=== PATIENT | male | born 1950 ===

== ENCOUNTER 2021-08-18 17:41 | Inpatient (IN) | payer MEDICARE, OTHER ==
--- NOTE | 2021-08-19 10:15 | Consultation ---
History of Present Illness - Reason for Consult Medical Management Requesting physician: CHAITANYA SANTIAGO - History of Present Illness 71 YO Male with HTN, HLD, Vascular Dementia with Behavioral Disturbance, MDD, BPH complicated by Urinary retention, OA, Hypothyroidism, GERD admitted to [facility] unit for psychiatric stabilization. Patient seen and evaluated in the recreation room. Patient denies fever, chills, chest pain, palpitation, productive cough, skin rash, recent contact, or known exposure to COVID-19. Patient cooperative with exam and interview. No reported nursing events. Past History Past Medical History: GERD, hypertension, hyperlipidemia, other (See HPI) Past Surgical History: total knee replacement Social history: , alcohol abuse. denies: smoking, prescription drug abuse Family history: hypertension Medications and Allergies Allergies Allergy/AdvReac Type Severity Reaction Status Date / Time No Known Allergies Allergy Verified 08/19/21 06:39 Home Medications Medication Instructions Recorded Confirmed Last Taken Type Amitriptyline [Elavil] 25 mg PO QHS 08/19/21 08/19/21 Unknown History AtorvaSTATin [Lipitor] 10 mg PO QHS 08/19/21 08/19/21 Unknown History Clopidogrel [Plavix] 75 mg PO QDAY 08/19/21 08/19/21 Unknown History Levothyroxine [Synthroid] 100 mcg PO QAM 08/19/21 08/19/21 Unknown History Multivitamin [Multiple Vitamins] 1 each PO DAILY 08/19/21 08/19/21 Unknown History Omeprazole 20 mg PO QAM 08/19/21 08/19/21 Unknown History Tamsulosin [Flomax] 0.4 mg PO QDAY 08/19/21 08/19/21 Unknown History Terazosin HCl 10 mg PO QHS 08/19/21 08/19/21 Unknown History Zinc Gluconate [Zinc] 50 mg PO DAILY 08/19/21 08/19/21 Unknown History atenoloL [Tenormin] 50 mg PO DAILY 08/19/21 08/19/21 Unknown History donepeziL [Aricept] 10 mg PO QHS 08/19/21 08/19/21 Unknown History Review of Systems Constitutional: no weight loss, no weight gain, no fever, no chills Ears, nose, mouth and throat: no ear pain, no ear discharge, no decreased hearing, no nose pain, no nasal discharge Cardiovascular: no orthopnea, no rapid/irregular heart beat, no edema, no syncope Respiratory: no cough, no hemoptysis, no shortness of breath, no dyspnea on exertion Gastrointestinal: no abdominal pain, no vomiting, no constipation, no hematemesis, no coffee ground emesis Genitourinary Male: urinary frequency, urinary hesitancy, no flank pain, no discharge Rectal: no pain, no incontinence, no bleeding Musculoskeletal: no neck stiffness, no neck pain, no arm numbness/tingling, no shooting leg pain, no leg numbness/tingling Integumentary: no rash, no redness, no sores, no wounds, no boils Neurological: no head injury, no transient paralysis, no paralysis, no pa rathesias, no numbness, no tingling, no syncope Psychiatric: anxiety, depression, irritability Endocrine: no cold intolerance, no excessive thirst, no polyuria, no nocturia Hematologic/Lymphatic: no easy bruising, no easy bleeding Allergic/Immunologic: no urticaria, no allergic rhinitis Exam - Constitutional Vitals: Temp Pulse Resp BP Pulse Ox 97.8 F 90 18 140/91 96 08/19/21 05:30 08/19/21 05:30 08/19/21 05:30 08/19/21 05:30 08/19/21 05:30 General appearance: Present: no acute distress - EENT Eyes: Present: PERRL ENT: hearing intact, clear oral mucosa - Neck Neck: Present: supple, normal ROM - Respiratory Respiratory effort: normal Respiratory: bilateral: CTA - Cardiovascular Heart Sounds: Present: S1 & S2. Absent: rub, click - Extremities Extremities: pulses symmetrical, No edema Peripheral Pulses: within normal limits - Abdominal General gastrointestinal: Present: soft, non-tender, non-distended, normal bowel sounds Male genitourinary: Present: normal - Integumentary Integumentary: Present: clear, warm, dry - Musculoskeletal Musculoskeletal: strength equal bilaterally - Psychiatric Psychiatric: cooperative - Neurologic Neurologic: CNII-XII intact, moves all extremities Results - Labs CBC & Chem 7: 08/19/21 12:46 08/19/21 12:46 Assessment and Plan - Patient Problems (1) Vascular dementia with behavioral disturbance Current Visit: Yes Status: Acute Plan to address problem: Verbal prompting, verbal redirection, benzodiazepine therapy as clinically indicated. (2) Cerebral atherosclerosis Current Visit: Yes Status: Acute Plan to address problem: Risk factor reduction therapy, antiplatelet therapy. (3) Hypertension Current Visit: Yes Status: Acute Qualifiers: Hypertension type: primary hypertension Qualified Code(s): I10 - Essential (primary) hypertension Plan to address problem: Monitor blood pressure every shift, continue prehospital antihypertensive therapy. (4) Hyperlipidemia Current Visit: Yes Status: Acute Qualifiers: Hyperlipidemia type: mixed hyperlipidemia Qualified Code(s): E78.2 - Mixed hyperlipidemia Plan to address problem: Low-cholesterol diet, statin therapy (5) Hypothyroidism Current Visit: Yes Status: Acute Plan to address problem: Continue Synthroid therapy, supportive care. (6) BPH (benign prostatic hyperplasia) Current Visit: Yes Status: Acute Qualifiers: Lower urinary tract symptom detail: urinary retention Plan to address problem: Continue Flomax, continue current therapy. Patient may be allowed to self catheterize himself intermittently. Patient undergoes self-catheterization at home. Outpatient urology follow-up (7) Advance care planning Current Visit: Yes Status: Acute Plan to address problem: Disease education conducted, care plan discussed, diagnoses discussed, prognosis discussed, patient is full code. Patient knowledges understanding and agreement with care plan, +30 minutes.
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
[2021-08-19] MEDS ORDERED: NON-FORMULARY EACH (Multivitamin [Multiple Vitamins] 1 EACH Tablet) PO SCH (10:45)
[2021-08-19] MEDS ORDERED: ZINC GLUCONATE 50 MG PO SCH (10:45)
[2021-08-19 13:19] LABS: Basophils % (Auto) 0.9 % (0.0-1.8); Eosinophils # (Auto) 0.1 K/mm3 (0.0-0.4); Eosinophils % (Auto) 1.5 % (0.0-4.3); Hematocrit 40.3 % (35.5-45.6); Hemoglobin 13.2 gm/dl (11.8-15.2); Lymphocytes # (Auto) 0.7 K/mm3 (1.2-5.4); Lymphocytes % (Auto) 17.7 % (13.4-35.0); Mean Corpuscular HGB Conc 33 % (32-34); Mean Corpuscular Volume 104 fl (84-94); Monocytes # (Auto) 0.3 K/mm3 (0.0-0.8); Monocytes % (Auto) 8.8 % (0.0-7.3); Red Blood Count 3.88 M/mm3 (3.65-5.03); Red Cell Distribution Width 16.5 % (13.2-15.2)
[2021-08-19 13:23] LABS: Platelet Count 199 K/mm3 (140-440)
[2021-08-19 13:35] LABS: Alanine Aminotransferase 28 units/L (7-56); Albumin 3.8 g/dL (3.9-5); BUN/Creatinine Ratio 13; Blood Urea Nitrogen 12 mg/dL (9-20); Calcium 8.5 mg/dL (8.4-10.2); Chol/HDL Ratio 3.11 %; HDL Cholesterol 61 mg/dL (40-59); Hemolysis Index 19; LDL Cholesterol,Direct 118 mg/dL (50-130)
[2021-08-19] MEDS: TAMSULOSIN 0.4 MG CAP PO SCH (14:01)
[2021-08-19] MEDS: VALPROIC ACID 250 MG/5 ML ORAL LIQD PO SCH (14:03)
[2021-08-19] MEDS: MULTIVITAMINS ,THERAPEUTIC TAB PO SCH (14:04)
[2021-08-19] MEDS: CLOPIDOGREL 75 MG TAB PO SCH (14:06)
[2021-08-19 14:27] LABS: Hepatitis B Surface Antigen Non-Reactive (Negative); Hepatitis C Virus Antibody Non-Reactive (NonReactive)
[2021-08-19] MEDS: atenoloL 50 MG TAB PO SCH (14:46)
[2021-08-19] MEDS: PRAZOSIN 5 MG CAP PO SCH ×2 (14:53→21:58)
[2021-08-19] MEDS: DONEPEZIL 10 MG TAB PO SCH (21:33)
[2021-08-19] MEDS: AMITRIPTYLINE 25 MG TAB PO SCH (21:33)
[2021-08-19] MEDS ORDERED: NON-FORMULARY EACH (Terazosin Hcl [Terazosin Hcl] 10 MG Capsule) PO SCH (22:00)
[2021-08-20] MEDS: LEVOTHYROXINE 100 MCG TAB PO SCH (06:10)
--- NOTE | 2021-08-20 09:37 | Progress Note ---
Subjective Date of service: 08/20/21 Principal diagnosis: Dementia with Behavioral Disturbance Subjective Comment: The patient was seen today. He is confused. He thinks he was brought here on an airplane. He says "Cristian Ruiz asked me to come. He's running this place, I think." The patient says he slept well. He also says he feels good. He denies SI/HI or hallucinations of any kind. REVIEW OF SYSTEMS Constitutional: Negative for weight loss ENT: Negative for stridor Respiratory: Negative for cough or hemoptysis All other systems reviewed and are negative MENTAL STATUS EXAMINATION General Appearance and Behavior: Age appropriate, good hygiene, wearing appropriate clothes. cooperative Cooperation: Cooperative Psychomotor Behavior: Psychomotor normal Mood: fine Affect and affective range: congruent with stated mood Thought Process: impaired Thought Content: None Speech: Normal tone and pace Suicidal Ideation: Denies Homicidal Ideation: Denies Hallucinations: Denies Delusions: None elicited Impulse Control: Limited Insight and Judgment: Poor insight and fair judgment Memory: poor Attention: distracted Orientation: confused Assessment (1) Dementia with Behavioral Disturbance Current Visit: Yes Status: Acute Treatment Plan Patient admitted for inpatient psychiatric evaluation, medication adjustment and close monitoring The patient's behavior, mood, sleep and appetite will be closely monitored. Patient enrolled in individual and group therapeutic sessions and encouraged to attend. Patient provided with a safe and structured environment. Patient's physical health needs will be addressed by the Hospitalist. Hospitalist Consulted Labs including CBC, CMP, Lipid profile and Hemoglobin A1C levels ordered for baseline reference Social Assessment will be completed and the Window Air Conditioner Installer will work with patient and family to ensure a suitable and safe disposition Medication adjustment will be made as clinically indicated Continue Depakote liquid 125mg po daily started yesterday Usual Wellness Yazidism/Preservation: - Start Trazodone 50 mg po QHS & 50 mg po QHS PRN between 10 PM & 2 AM for insomnia - Start Melatonin 5 mg po QHS to promote circadian rhythm The patient agreed on the treatment plan, understood the risk, benefit, alternative treatment, potential consequence of no treatment, and gave informed consent. Estimated days: 7 Post hospital care: primary care provider, psychiatric provider Case staffed with Dr. Ibarra Medications and Allergies Allergies Allergy/AdvReac Type Severity Reaction Status Date / Time No Known Allergies Allergy Verified 08/19/21 06:39 Home Medications Medication Instructions Recorded Confirmed Last Taken Type Amitriptyline [Elavil] 25 mg PO QHS 08/19/21 08/19/21 Unknown History AtorvaSTATin [Lipitor] 10 mg PO QHS 08/19/21 08/19/21 Unknown History Clopidogrel [Plavix] 75 mg PO QDAY 08/19/21 08/19/21 Unknown History Levothyroxine [Synthroid] 100 mcg PO QAM 08/19/21 08/19/21 Unknown History Multivitamin [Multiple Vitamins] 1 each PO DAILY 08/19/21 08/19/21 Unknown History Omeprazole 20 mg PO QAM 08/19/21 08/19/21 Unknown History Tamsulosin [Flomax] 0.4 mg PO QDAY 08/19/21 08/19/21 Unknown History Terazosin HCl 10 mg PO QHS 08/19/21 08/19/21 Unknown History Zinc Gluconate [Zinc] 50 mg PO DAILY 08/19/21 08/19/21 Unknown History atenoloL [Tenormin] 50 mg PO DAILY 08/19/21 08/19/21 Unknown History donepeziL [Aricept] 10 mg PO QHS 08/19/21 08/19/21 Unknown History Active Meds: Active Medications Amitriptyline HCl (Amitriptyline 25 Mg Tab) 25 mg PO QHS [facility] Last Admin: 08/19/21 21:33 Dose: 25 mg Atenolol (Atenolol 50 Mg Tab) 50 mg PO DAILY [facility] Last Admin: 08/19/21 14:46 Dose: 50 mg Atorvastatin Calcium (Atorvastatin 10 Mg Tab) 10 mg PO QHS [facility] Last Admin: 08/19/21 21:33 Dose: 10 mg Clopidogrel Bisulfate (Clopidogrel 75 Mg Tab) 75 mg PO QDAY [facility] Last Admin: 08/19/21 14:06 Dose: 75 mg Donepezil HCl (Donepezil 10 Mg Tab) 10 mg PO QHS [facility] Last Admin: 08/19/21 21:33 Dose: 10 mg Levothyroxine Sodium (Levothyroxine 100 Mcg Tab) 100 mcg PO 0600 [facility] Last Admin: 08/20/21 06:10 Dose: 100 mcg Miscellaneous Medication (Zinc Gluconate [Zinc]) 50 mg PO DAILY [facility] Multivitamins (Multivitamins ,Therapeutic Tab) 1 each PO DAILY [facility] Last Admin: 08/19/21 14:04 Dose: 1 each Pantoprazole Sodium (Pantoprazole 20 Mg Tab) 20 mg PO QDAY [facility] Prazosin HCl (Prazosin 5 Mg Cap) 5 mg PO Q12HR [facility] Last Admin: 08/19/21 21:58 Dose: 5 mg Tamsulosin HCl (Tamsulosin 0.4 Mg Cap) 0.4 mg PO QDAY [facility] Last Admin: 08/19/21 14:01 Dose: 0.4 mg Valproic Acid (Valproic Acid 250 Mg/5 Ml Oral Liqd) 125 mg PO DAILY [facility] Last Admin: 08/19/21 14:03 Dose: 125 mg Results - Results Labs/Vitals: Laboratory Last Values WBC 3.9 K/mm3 (4.5-11.0) L 08/19/21 12:46 RBC 3.88 M/mm3 (3.65-5.03) 08/19/21 12:46 Hgb 13.2 gm/dl (11.8-15.2) 08/19/21 12:46 Hct 40.3 % (35.5-45.6) 08/19/21 12:46 MCV 104 fl (84-94) H 08/19/21 12:46 MCH 34 pg (28-32) H 08/19/21 12:46 MCHC 33 % (32-34) 08/19/21 12:46 RDW 16.5 % (13.2-15.2) H 08/19/21 12:46 Plt Count 199 K/mm3 (140-440) 08/19/21 12:46 Lymph % (Auto) 17.7 % (13.4-35.0) 08/19/21 12:46 [place] % (Auto) 8.8 % (0.0-7.3) H 08/19/21 12:46 Eos % (Auto) 1.5 % (0.0-4.3) 08/19/21 12:46 Baso % (Auto) 0.9 % (0.0-1.8) 08/19/21 12:46 Lymph # (Auto) 0.7 K/mm3 (1.2-5.4) L 08/19/21 12:46 [place] # (Auto) 0.3 K/mm3 (0.0-0.8) 08/19/21 12:46 Eos # (Auto) 0.1 K/mm3 (0.0-0.4) 08/19/21 12:46 Baso # (Auto) 0.0 K/mm3 (0.0-0.1) 08/19/21 12:46 Seg Neutrophils % 71.1 % (40.0-70.0) H 08/19/21 12:46 Seg Neutrophils # 2.8 K/mm3 (1.8-7.7) 08/19/21 12:46 Sodium 142 mmol/L (137-145) 08/19/21 12:46 Potassium 3.7 mmol/L (3.6-5.0) 08/19/21 12:46 Chloride 106.7 mmol/L (98-107) 08/19/21 12:46 Carbon Dioxide 25 mmol/L (22-30) 08/19/21 12:46 Anion Gap 14 mmol/L 08/19/21 12:46 BUN 12 mg/dL (9-20) 08/19/21 12:46 Creatinine 0.9 mg/dL (0.8-1.3) 08/19/21 12:46 Estimated GFR > 60 ml/min 08/19/21 12:46 BUN/Creatinine Ratio 13 % 08/19/21 12:46 Glucose 117 mg/dL (75-100) H 08/19/21 12:46 Hemoglobin A1c 5.4 % (4-6) 08/19/21 12:46 Calcium 8.5 mg/dL (8.4-10.2) 08/19/21 12:46 Total Bilirubin 0.60 mg/dL (0.1-1.2) 08/19/21 12:46 AST 22 units/L (5-40) 08/19/21 12:46 ALT 28 units/L (7-56) 08/19/21 12:46 Alkaline Phosphatase 100 units/L (35-129) 08/19/21 12:46 Total Protein 6.3 g/dL (6.3-8.2) 08/19/21 12:46 Albumin 3.8 g/dL (3.9-5) L 08/19/21 12:46 Albumin/Globulin Ratio 1.5 % 08/19/21 12:46 Triglycerides 115 mg/dL (2-149) 08/19/21 12:46 Cholesterol 190 mg/dL (50-199) 08/19/21 12:46 LDL Cholesterol Direct 118 mg/dL (50-130) 08/19/21 12:46 HDL Cholesterol 61 mg/dL (40-59) H 08/19/21 12:46 Cholesterol/HDL Ratio 3.11 % 08/19/21 12:46 TSH 5.510 mlU/mL (0.270-4.200) H 08/19/21 12:46 Hepatitis A IgM Ab Non-reactive (NonReactive) 08/19/21 12:46 Hep Bs Antigen Non-reactive (Negative) 08/19/21 12:46 Hep B Core IgM Ab Non-reactive (NonReactive) 08/19/21 12:46 Hepatitis C Antibody Non-reactive (NonReactive) 08/19/21 12:46 Last Vital Signs Temp 97.8 F 08/19/21 05:30 Pulse 76 08/19/21 21:58 Resp 18 08/19/21 05:30 BP 134/79 08/19/21 21:58 Pulse Ox 96 08/19/21 05:30
[2021-08-20] MEDS ORDERED: NON-FORMULARY EACH (Omeprazole [Omeprazole] 20 MG Capsule.Dr) PO SCH (10:00)
[2021-08-20] MEDS: CLOPIDOGREL 75 MG TAB PO SCH (11:58)
[2021-08-20] MEDS: MULTIVITAMINS ,THERAPEUTIC TAB PO SCH (11:58)
[2021-08-20] MEDS: VALPROIC ACID 250 MG/5 ML ORAL LIQD PO SCH (11:58)
[2021-08-20] MEDS: PANTOPRAZOLE 20 MG TAB PO SCH (11:58)
[2021-08-20] MEDS: TAMSULOSIN 0.4 MG CAP PO SCH (11:58)
[2021-08-20] MEDS: atenoloL 50 MG TAB PO SCH (13:47)
[2021-08-20] MEDS: PRAZOSIN 5 MG CAP PO SCH ×2 (13:47→21:48)
[2021-08-20] MEDS: DONEPEZIL 10 MG TAB PO SCH (21:48)
[2021-08-20] MEDS: AMITRIPTYLINE 25 MG TAB PO SCH (21:48)
[2021-08-21] MEDS: LEVOTHYROXINE 100 MCG TAB PO SCH (06:07)
--- NOTE | 2021-08-21 09:56 | Progress Note ---
Subjective Date of service: 08/21/21 Principal diagnosis: Dementia with Behavioral Disturbance Subjective Comment: The patient was seen today. He is sitting on side of the bed. He is confused. He is irritable and says "I'm upset after they told me I was in the hospital. I shouldn't be here." The patient doesn't recall anything that happened at home. He denies it. He denies SI/HI or hallucinations of any kind. Staff reports the patient has been delusional and having difficulty sleeping. REVIEW OF SYSTEMS Constitutional: Negative for weight loss ENT: Negative for stridor Respiratory: Negative for cough or hemoptysis All other systems reviewed and are negative MENTAL STATUS EXAMINATION General Appearance and Behavior: Age appropriate, good hygiene, wearing appropriate clothes. cooperative Cooperation: Cooperative Psychomotor Behavior: Psychomotor normal Mood: fine Affect and affective range: congruent with stated mood Thought Process: impaired Thought Content: None Speech: Normal tone and pace Suicidal Ideation: Denies Homicidal Ideation: Denies Hallucinations: Denies Delusions: None elicited Impulse Control: Limited Insight and Judgment: Poor insight and fair judgment Memory: poor Attention: distracted Orientation: confused Assessment (1) Dementia with Behavioral Disturbance Current Visit: Yes Status: Acute Treatment Plan Patient admitted for inpatient psychiatric evaluation, medication adjustment and close monitoring The patient's behavior, mood, sleep and appetite will be closely monitored. Patient enrolled in individual and group therapeutic sessions and encouraged to attend. Patient provided with a safe and structured environment. Patient's physical health needs will be addressed by the Hospitalist. Hospitalist Consulted Labs including CBC, CMP, Lipid profile and Hemoglobin A1C levels ordered for baseline reference Social Assessment will be completed and the Heating Element Repairer will work with patient and family to ensure a suitable and safe disposition Medication adjustment will be made as clinically indicated Increase Depakote liquid 125mg po BID Start Olanzapine 2.5mg po daily Usual Wellness Faith/Preservation: - Start Trazodone 50 mg po QHS & 50 mg po QHS PRN between 10 PM & 2 AM for insomnia - Start Melatonin 5 mg po QHS to promote circadian rhythm The patient agreed on the treatment plan, understood the risk, benefit, alternative treatment, potential consequence of no treatment, and gave informed consent. Estimated days: 7 Post hospital care: primary care provider, psychiatric provider Case staffed with Dr. Ibarra Medications and Allergies Allergies Allergy/AdvReac Type Severity Reaction Status Date / Time No Known Allergies Allergy Verified 08/19/21 06:39 Home Medications Medication Instructions Recorded Confirmed Last Taken Type Amitriptyline [Elavil] 25 mg PO QHS 08/19/21 08/19/21 Unknown History AtorvaSTATin [Lipitor] 10 mg PO QHS 08/19/21 08/19/21 Unknown History Clopidogrel [Plavix] 75 mg PO QDAY 08/19/21 08/19/21 Unknown History Levothyroxine [Synthroid] 100 mcg PO QAM 08/19/21 08/19/21 Unknown History Multivitamin [Multiple Vitamins] 1 each PO DAILY 08/19/21 08/19/21 Unknown History Omeprazole 20 mg PO QAM 08/19/21 08/19/21 Unknown History Tamsulosin [Flomax] 0.4 mg PO QDAY 08/19/21 08/19/21 Unknown History Terazosin HCl 10 mg PO QHS 08/19/21 08/19/21 Unknown History Zinc Gluconate [Zinc] 50 mg PO DAILY 08/19/21 08/19/21 Unknown History atenoloL [Tenormin] 50 mg PO DAILY 08/19/21 08/19/21 Unknown History donepeziL [Aricept] 10 mg PO QHS 08/19/21 08/19/21 Unknown History Active Meds: Active Medications Amitriptyline HCl (Amitriptyline 25 Mg Tab) 25 mg PO QHS [facility] Last Admin: 08/20/21 21:48 Dose: 25 mg Atenolol (Atenolol 50 Mg Tab) 50 mg PO DAILY [facility] Last Admin: 08/20/21 13:47 Dose: Not Given Atorvastatin Calcium (Atorvastatin 10 Mg Tab) 10 mg PO QHS [facility] Last Admin: 08/20/21 21:48 Dose: 10 mg Clopidogrel Bisulfate (Clopidogrel 75 Mg Tab) 75 mg PO QDAY [facility] Last Admin: 08/20/21 11:58 Dose: 75 mg Donepezil HCl (Donepezil 10 Mg Tab) 10 mg PO QHS [facility] Last Admin: 08/20/21 21:48 Dose: 10 mg Levothyroxine Sodium (Levothyroxine 100 Mcg Tab) 100 mcg PO 0600 [facility] Last Admin: 08/21/21 06:07 Dose: 100 mcg Miscellaneous Medication (Zinc Gluconate [Zinc]) 50 mg PO DAILY [facility] Multivitamins (Multivitamins ,Therapeutic Tab) 1 each PO DAILY [facility] Last Admin: 08/20/21 11:58 Dose: 1 each Pantoprazole Sodium (Pantoprazole 20 Mg Tab) 20 mg PO QDAY [facility] Last Admin: 08/20/21 11:58 Dose: 20 mg Prazosin HCl (Prazosin 5 Mg Cap) 5 mg PO Q12HR [facility] Last Admin: 08/20/21 21:48 Dose: 5 mg Tamsulosin HCl (Tamsulosin 0.4 Mg Cap) 0.4 mg PO QDAY [facility] Last Admin: 08/20/21 11:58 Dose: 0.4 mg Valproic Acid (Valproic Acid 250 Mg/5 Ml Oral Liqd) 125 mg PO DAILY [facility] Last Admin: 08/20/21 11:58 Dose: 125 mg Results - Results Labs/Vitals: Laboratory Last Values WBC 3.9 K/mm3 (4.5-11.0) L 08/19/21 12:46 RBC 3.88 M/mm3 (3.65-5.03) 08/19/21 12:46 Hgb 13.2 gm/dl (11.8-15.2) 08/19/21 12:46 Hct 40.3 % (35.5-45.6) 08/19/21 12:46 MCV 104 fl (84-94) H 08/19/21 12:46 MCH 34 pg (28-32) H 08/19/21 12:46 MCHC 33 % (32-34) 08/19/21 12:46 RDW 16.5 % (13.2-15.2) H 08/19/21 12:46 Plt Count 199 K/mm3 (140-440) 08/19/21 12:46 Lymph % (Auto) 17.7 % (13.4-35.0) 08/19/21 12:46 [place] % (Auto) 8.8 % (0.0-7.3) H 08/19/21 12:46 Eos % (Auto) 1.5 % (0.0-4.3) 08/19/21 12:46 Baso % (Auto) 0.9 % (0.0-1.8) 08/19/21 12:46 Lymph # (Auto) 0.7 K/mm3 (1.2-5.4) L 08/19/21 12:46 [place] # (Auto) 0.3 K/mm3 (0.0-0.8) 08/19/21 12:46 Eos # (Auto) 0.1 K/mm3 (0.0-0.4) 08/19/21 12:46 Baso # (Auto) 0.0 K/mm3 (0.0-0.1) 08/19/21 12:46 Seg Neutrophils % 71.1 % (40.0-70.0) H 08/19/21 12:46 Seg Neutrophils # 2.8 K/mm3 (1.8-7.7) 08/19/21 12:46 Sodium 142 mmol/L (137-145) 08/19/21 12:46 Potassium 3.7 mmol/L (3.6-5.0) 08/19/21 12:46 Chloride 106.7 mmol/L (98-107) 08/19/21 12:46 Carbon Dioxide 25 mmol/L (22-30) 08/19/21 12:46 Anion Gap 14 mmol/L 08/19/21 12:46 BUN 12 mg/dL (9-20) 08/19/21 12:46 Creatinine 0.9 mg/dL (0.8-1.3) 08/19/21 12:46 Estimated GFR > 60 ml/min 08/19/21 12:46 BUN/Creatinine Ratio 13 % 08/19/21 12:46 Glucose 117 mg/dL (75-100) H 08/19/21 12:46 Hemoglobin A1c 5.4 % (4-6) 08/19/21 12:46 Calcium 8.5 mg/dL (8.4-10.2) 08/19/21 12:46 Total Bilirubin 0.60 mg/dL (0.1-1.2) 08/19/21 12:46 AST 22 units/L (5-40) 08/19/21 12:46 ALT 28 units/L (7-56) 08/19/21 12:46 Alkaline Phosphatase 100 units/L (35-129) 08/19/21 12:46 Total Protein 6.3 g/dL (6.3-8.2) 08/19/21 12:46 Albumin 3.8 g/dL (3.9-5) L 08/19/21 12:46 Albumin/Globulin Ratio 1.5 % 08/19/21 12:46 Triglycerides 115 mg/dL (2-149) 08/19/21 12:46 Cholesterol 190 mg/dL (50-199) 08/19/21 12:46 LDL Cholesterol Direct 118 mg/dL (50-130) 08/19/21 12:46 HDL Cholesterol 61 mg/dL (40-59) H 08/19/21 12:46 Cholesterol/HDL Ratio 3.11 % 08/19/21 12:46 TSH 5.510 mlU/mL (0.270-4.200) H 08/19/21 12:46 Hepatitis A IgM Ab Non-reactive (NonReactive) 08/19/21 12:46 Hep Bs Antigen Non-reactive (Negative) 08/19/21 12:46 Hep B Core IgM Ab Non-reactive (NonReactive) 08/19/21 12:46 Hepatitis C Antibody Non-reactive (NonReactive) 08/19/21 12:46 Last Vital Signs Temp 98.4 F 08/20/21 19:30 Pulse 74 08/20/21 21:48 Resp 16 08/20/21 19:30 BP 143/76 08/20/21 21:48 Pulse Ox 98 08/20/21 19:30
[2021-08-21] MEDS: CLOPIDOGREL 75 MG TAB PO SCH (10:11)
[2021-08-21] MEDS: MULTIVITAMINS ,THERAPEUTIC TAB PO SCH (10:11)
[2021-08-21] MEDS: PRAZOSIN 5 MG CAP PO SCH ×2 (10:11→21:42)
[2021-08-21] MEDS: atenoloL 50 MG TAB PO SCH (10:11)
[2021-08-21] MEDS: TAMSULOSIN 0.4 MG CAP PO SCH (10:11)
[2021-08-21] MEDS: PANTOPRAZOLE 20 MG TAB PO SCH (10:12)
[2021-08-21] MEDS: VALPROIC ACID 250 MG/5 ML ORAL LIQD PO SCH ×2 (12:36→21:40)
[2021-08-21] MEDS: AMITRIPTYLINE 25 MG TAB PO SCH (21:40)
[2021-08-21] MEDS: DONEPEZIL 10 MG TAB PO SCH (21:40)
[2021-08-22] MEDS: LEVOTHYROXINE 100 MCG TAB PO SCH (05:48)
--- NOTE | 2021-08-22 08:31 | Progress Note ---
Subjective Date of service: 08/22/21 Principal diagnosis: Dementia with Behavioral Disturbance Subjective Comment: 08/22/21: The patient was seen this morning in the activity room. He reports being tired. He reports sleep as poor " I was up most of the night, because of the time change." He reports mood as good. He denies any current suicidal/homicidal ideation and denies hallucinations. REVIEW OF SYSTEMS Constitutional: Negative for weight loss ENT: Negative for stridor Respiratory: Negative for cough or hemoptysis All other systems reviewed and are negative MENTAL STATUS EXAMINATION General Appearance and Behavior: Age appropriate, good hygiene, wearing appropriate clothes. cooperative Cooperation: Cooperative Psychomotor Behavior: Psychomotor normal Mood: "good" Affect and affective range: congruent with stated mood Thought Process: impaired Thought Content: confused Speech: Normal tone and pace Suicidal Ideation: Denies Homicidal Ideation: Denies Hallucinations: Denies Delusions: None elicited Impulse Control: Limited Insight and Judgment: Poor insight and fair judgment Memory: poor Attention: distracted Orientation: confused Assessment (1) Dementia with Behavioral Disturbance Current Visit: Yes Status: Acute Treatment Plan Patient admitted for inpatient psychiatric evaluation, medication adjustment and close monitoring The patient's behavior, mood, sleep and appetite will be closely monitored. Patient enrolled in individual and group therapeutic sessions and encouraged to attend. Patient provided with a safe and structured environment. Patient's physical health needs will be addressed by the Hospitalist. Hospitalist Consulted Labs including CBC, CMP, Lipid profile and Hemoglobin A1C levels ordered for baseline reference Social Assessment will be completed and the Development Rep will work with patient and family to ensure a suitable and safe disposition Medication adjustment will be made as clinically indicated Continue Depakote liquid 125mg po BID Start Seroquel 25mg BID, 50mg po QHS Usual Wellness Tenriism/Preservation: - Start Trazodone 50 mg po QHS & 50 mg po QHS PRN between 10 PM & 2 AM for insomnia - Start Melatonin 5 mg po QHS to promote circadian rhythm The patient agreed on the treatment plan, understood the risk, benefit, alternative treatment, potential consequence of no treatment, and gave informed consent. Estimated days: 4 Post hospital care: primary care provider, psychiatric provider Case staffed with Dr. Ibarra Medications and Allergies Medications and Allergies Allergies Allergy/AdvReac Type Severity Reaction Status Date / Time No Known Allergies Allergy Verified 08/19/21 06:39 Home Medications Medication Instructions Recorded Confirmed Last Taken Type Amitriptyline [Elavil] 25 mg PO QHS 08/19/21 08/19/21 Unknown History AtorvaSTATin [Lipitor] 10 mg PO QHS 08/19/21 08/19/21 Unknown History Clopidogrel [Plavix] 75 mg PO QDAY 08/19/21 08/19/21 Unknown History Levothyroxine [Synthroid] 100 mcg PO QAM 08/19/21 08/19/21 Unknown History Multivitamin [Multiple Vitamins] 1 each PO DAILY 08/19/21 08/19/21 Unknown History Omeprazole 20 mg PO QAM 08/19/21 08/19/21 Unknown History Tamsulosin [Flomax] 0.4 mg PO QDAY 08/19/21 08/19/21 Unknown History Terazosin HCl 10 mg PO QHS 08/19/21 08/19/21 Unknown History Zinc Gluconate [Zinc] 50 mg PO DAILY 08/19/21 08/19/21 Unknown History atenoloL [Tenormin] 50 mg PO DAILY 08/19/21 08/19/21 Unknown History donepeziL [Aricept] 10 mg PO QHS 08/19/21 08/19/21 Unknown History Active Meds: Active Medications Amitriptyline HCl (Amitriptyline 25 Mg Tab) 25 mg PO QHS [facility] Last Admin: 08/21/21 21:40 Dose: 25 mg Atenolol (Atenolol 50 Mg Tab) 50 mg PO DAILY [facility] Last Admin: 08/21/21 10:11 Dose: 50 mg Atorvastatin Calcium (Atorvastatin 10 Mg Tab) 10 mg PO QHS [facility] Last Admin: 08/21/21 21:40 Dose: 10 mg Clopidogrel Bisulfate (Clopidogrel 75 Mg Tab) 75 mg PO QDAY [facility] Last Admin: 08/21/21 10:11 Dose: 75 mg Donepezil HCl (Donepezil 10 Mg Tab) 10 mg PO QHS [facility] Last Admin: 08/21/21 21:40 Dose: 10 mg Levothyroxine Sodium (Levothyroxine 100 Mcg Tab) 100 mcg PO 0600 [facility] Last Admin: 08/22/21 05:48 Dose: 100 mcg Miscellaneous Medication (Zinc Gluconate [Zinc]) 50 mg PO DAILY [facility] Multivitamins (Multivitamins ,Therapeutic Tab) 1 each PO DAILY [facility] Last Admin: 08/21/21 10:11 Dose: 1 each Olanzapine (Olanzapine 2.5 Mg Tab) 2.5 mg PO QDAY [facility] Last Admin: 08/21/21 12:29 Dose: 2.5 mg Pantoprazole Sodium (Pantoprazole 20 Mg Tab) 20 mg PO QDAY [facility] Last Admin: 08/21/21 10:12 Dose: 20 mg Prazosin HCl (Prazosin 5 Mg Cap) 5 mg PO Q12HR [facility] Last Admin: 08/21/21 21:42 Dose: Not Given Tamsulosin HCl (Tamsulosin 0.4 Mg Cap) 0.4 mg PO QDAY [facility] Last Admin: 08/21/21 10:11 Dose: 0.4 mg Valproic Acid (Valproic Acid 250 Mg/5 Ml Oral Liqd) 125 mg PO BID [facility] Last Admin: 08/21/21 21:40 Dose: 125 mg Results - Results Labs/Vitals: Laboratory Last Values WBC 3.9 K/mm3 (4.5-11.0) L 08/19/21 12:46 RBC 3.88 M/mm3 (3.65-5.03) 08/19/21 12:46 Hgb 13.2 gm/dl (11.8-15.2) 08/19/21 12:46 Hct 40.3 % (35.5-45.6) 08/19/21 12:46 MCV 104 fl (84-94) H 08/19/21 12:46 MCH 34 pg (28-32) H 08/19/21 12:46 MCHC 33 % (32-34) 08/19/21 12:46 RDW 16.5 % (13.2-15.2) H 08/19/21 12:46 Plt Count 199 K/mm3 (140-440) 08/19/21 12:46 Lymph % (Auto) 17.7 % (13.4-35.0) 08/19/21 12:46 [place] % (Auto) 8.8 % (0.0-7.3) H 08/19/21 12:46 Eos % (Auto) 1.5 % (0.0-4.3) 08/19/21 12:46 Baso % (Auto) 0.9 % (0.0-1.8) 08/19/21 12:46 Lymph # (Auto) 0.7 K/mm3 (1.2-5.4) L 08/19/21 12:46 [place] # (Auto) 0.3 K/mm3 (0.0-0.8) 08/19/21 12:46 Eos # (Auto) 0.1 K/mm3 (0.0-0.4) 08/19/21 12:46 Baso # (Auto) 0.0 K/mm3 (0.0-0.1) 08/19/21 12:46 Seg Neutrophils % 71.1 % (40.0-70.0) H 08/19/21 12:46 Seg Neutrophils # 2.8 K/mm3 (1.8-7.7) 08/19/21 12:46 Sodium 142 mmol/L (137-145) 08/19/21 12:46 Potassium 3.7 mmol/L (3.6-5.0) 08/19/21 12:46 Chloride 106.7 mmol/L (98-107) 08/19/21 12:46 Carbon Dioxide 25 mmol/L (22-30) 08/19/21 12:46 Anion Gap 14 mmol/L 08/19/21 12:46 BUN 12 mg/dL (9-20) 08/19/21 12:46 Creatinine 0.9 mg/dL (0.8-1.3) 08/19/21 12:46 Estimated GFR > 60 ml/min 08/19/21 12:46 BUN/Creatinine Ratio 13 % 08/19/21 12:46 Glucose 117 mg/dL (75-100) H 08/19/21 12:46 Hemoglobin A1c 5.4 % (4-6) 08/19/21 12:46 Calcium 8.5 mg/dL (8.4-10.2) 08/19/21 12:46 Total Bilirubin 0.60 mg/dL (0.1-1.2) 08/19/21 12:46 AST 22 units/L (5-40) 08/19/21 12:46 ALT 28 units/L (7-56) 08/19/21 12:46 Alkaline Phosphatase 100 units/L (35-129) 08/19/21 12:46 Total Protein 6.3 g/dL (6.3-8.2) 08/19/21 12:46 Albumin 3.8 g/dL (3.9-5) L 08/19/21 12:46 Albumin/Globulin Ratio 1.5 % 08/19/21 12:46 Triglycerides 115 mg/dL (2-149) 08/19/21 12:46 Cholesterol 190 mg/dL (50-199) 08/19/21 12:46 LDL Cholesterol Direct 118 mg/dL (50-130) 08/19/21 12:46 HDL Cholesterol 61 mg/dL (40-59) H 08/19/21 12:46 Cholesterol/HDL Ratio 3.11 % 08/19/21 12:46 TSH 5.510 mlU/mL (0.270-4.200) H 08/19/21 12:46 Hepatitis A IgM Ab Non-reactive (NonReactive) 08/19/21 12:46 Hep Bs Antigen Non-reactive (Negative) 08/19/21 12:46 Hep B Core IgM Ab Non-reactive (NonReactive) 08/19/21 12:46 Hepatitis C Antibody Non-reactive (NonReactive) 08/19/21 12:46 Last Vital Signs Temp 98.6 F 08/21/21 19:41 Pulse 63 08/21/21 21:42 Resp 17 08/21/21 19:41 BP 117/66 08/21/21 21:42 Pulse Ox 91 08/21/21 19:41
[2021-08-22] MEDS: PANTOPRAZOLE 20 MG TAB PO SCH (11:11)
[2021-08-22] MEDS: PRAZOSIN 5 MG CAP PO SCH ×2 (11:11→21:23)
[2021-08-22] MEDS: CLOPIDOGREL 75 MG TAB PO SCH (11:11)
[2021-08-22] MEDS: TAMSULOSIN 0.4 MG CAP PO SCH (11:11)
[2021-08-22] MEDS: MULTIVITAMINS ,THERAPEUTIC TAB PO SCH (11:11)
[2021-08-22] MEDS: atenoloL 50 MG TAB PO SCH (11:12)
[2021-08-22] MEDS: VALPROIC ACID 250 MG/5 ML ORAL LIQD PO SCH ×2 (11:15→21:22)
--- NOTE | 2021-08-22 12:18 | Progress Note ---
Assessment and Plan - Patient Problems (1) Vascular dementia with behavioral disturbance Current Visit: Yes Status: Acute Plan to address problem: Verbal prompting, verbal redirection, benzodiazepine therapy as clinically indicated. (2) Cerebral atherosclerosis Current Visit: Yes Status: Acute Plan to address problem: Risk factor reduction therapy, antiplatelet therapy. (3) Hypertension Current Visit: Yes Status: Acute Qualifiers: Hypertension type: primary hypertension Qualified Code(s): I10 - Essential (primary) hypertension Plan to address problem: Monitor blood pressure every shift, continue prehospital antihypertensive therapy. (4) Hyperlipidemia Current Visit: Yes Status: Acute Qualifiers: Hyperlipidemia type: mixed hyperlipidemia Qualified Code(s): E78.2 - Mixed hyperlipidemia Plan to address problem: Low-cholesterol diet, statin therapy (5) Hypothyroidism Current Visit: Yes Status: Acute Plan to address problem: Continue Synthroid therapy, supportive care. (6) BPH (benign prostatic hyperplasia) Current Visit: Yes Status: Acute Qualifiers: Lower urinary tract symptom detail: urinary retention Plan to address problem: Continue Flomax, continue current therapy. Patient may be allowed to self catheterize himself intermittently. Patient undergoes self-catheterization at home. Outpatient urology follow-up (7) Advance care planning Current Visit: Yes Status: Acute Plan to address problem: Disease education conducted, care plan discussed, diagnoses discussed, prognosis discussed, patient is full code. Patient knowledges understanding and agreement with care plan, +30 minutes. History Interval history: 71 YO Male with HTN, HLD, Vascular Dementia with Behavioral Disturbance, MDD, BPH complicated by Urinary retention, OA, Hypothyroidism, GERD admitted to [facility] psych unit for psychiatric stabilization. Patient seen and evaluated in the recreation room. Patient cooperative with exam and interview. No reported nursing events. Patient denies pain. Hospitalist Physical - Constitutional Vitals: Temp Pulse Resp BP Pulse Ox 98.3 F 67 18 141/75 97 08/22/21 10:57 08/22/21 10:57 08/22/21 10:57 08/22/21 10:57 08/22/21 10:57 General appearance: Present: no acute distress - EENT Eyes: Present: PERRL ENT: hearing decreased - Neck Neck: Present: supple - Respiratory Respiratory effort: normal Respiratory: bilateral: CTA - Cardiovascular Rhythm: regular Heart Sounds: Present: S1 & S2 - Extremities Extremities: no ischemia Peripheral Pulses: within normal limits - Abdominal General gastrointestinal: soft, non-tender, non-distended - Integumentary Integumentary: Present: clear, dry - Psychiatric Psychiatric: cooperative - Neurologic Neurologic: CNII-XII intact Results - Labs CBC & Chem 7: 08/19/21 12:46 08/19/21 12:46 Labs: Laboratory Last Values WBC 3.9 K/mm3 (4.5-11.0) L 08/19/21 12:46 RBC 3.88 M/mm3 (3.65-5.03) 08/19/21 12:46 Hgb 13.2 gm/dl (11.8-15.2) 08/19/21 12:46 Hct 40.3 % (35.5-45.6) 08/19/21 12:46 MCV 104 fl (84-94) H 08/19/21 12:46 MCH 34 pg (28-32) H 08/19/21 12:46 MCHC 33 % (32-34) 08/19/21 12:46 RDW 16.5 % (13.2-15.2) H 08/19/21 12:46 Plt Count 199 K/mm3 (140-440) 08/19/21 12:46 Lymph % (Auto) 17.7 % (13.4-35.0) 08/19/21 12:46 [place] % (Auto) 8.8 % (0.0-7.3) H 08/19/21 12:46 Eos % (Auto) 1.5 % (0.0-4.3) 08/19/21 12:46 Baso % (Auto) 0.9 % (0.0-1.8) 08/19/21 12:46 Lymph # (Auto) 0.7 K/mm3 (1.2-5.4) L 08/19/21 12:46 [place] # (Auto) 0.3 K/mm3 (0.0-0.8) 08/19/21 12:46 Eos # (Auto) 0.1 K/mm3 (0.0-0.4) 08/19/21 12:46 Baso # (Auto) 0.0 K/mm3 (0.0-0.1) 08/19/21 12:46 Seg Neutrophils % 71.1 % (40.0-70.0) H 08/19/21 12:46 Seg Neutrophils # 2.8 K/mm3 (1.8-7.7) 08/19/21 12:46 Sodium 142 mmol/L (137-145) 08/19/21 12:46 Potassium 3.7 mmol/L (3.6-5.0) 08/19/21 12:46 Chloride 106.7 mmol/L (98-107) 08/19/21 12:46 Carbon Dioxide 25 mmol/L (22-30) 08/19/21 12:46 Anion Gap 14 mmol/L 08/19/21 12:46 BUN 12 mg/dL (9-20) 08/19/21 12:46 Creatinine 0.9 mg/dL (0.8-1.3) 08/19/21 12:46 Estimated GFR > 60 ml/min 08/19/21 12:46 BUN/Creatinine Ratio 13 % 08/19/21 12:46 Glucose 117 mg/dL (75-100) H 08/19/21 12:46 Hemoglobin A1c 5.4 % (4-6) 08/19/21 12:46 Calcium 8.5 mg/dL (8.4-10.2) 08/19/21 12:46 Total Bilirubin 0.60 mg/dL (0.1-1.2) 08/19/21 12:46 AST 22 units/L (5-40) 08/19/21 12:46 ALT 28 units/L (7-56) 08/19/21 12:46 Alkaline Phosphatase 100 units/L (35-129) 08/19/21 12:46 Total Protein 6.3 g/dL (6.3-8.2) 08/19/21 12:46 Albumin 3.8 g/dL (3.9-5) L 08/19/21 12:46 Albumin/Globulin Ratio 1.5 % 08/19/21 12:46 Triglycerides 115 mg/dL (2-149) 08/19/21 12:46 Cholesterol 190 mg/dL (50-199) 08/19/21 12:46 LDL Cholesterol Direct 118 mg/dL (50-130) 08/19/21 12:46 HDL Cholesterol 61 mg/dL (40-59) H 08/19/21 12:46 Cholesterol/HDL Ratio 3.11 % 08/19/21 12:46 TSH 5.510 mlU/mL (0.270-4.200) H 08/19/21 12:46 Hepatitis A IgM Ab Non-reactive (NonReactive) 08/19/21 12:46 Hep Bs Antigen Non-reactive (Negative) 08/19/21 12:46 Hep B Core IgM Ab Non-reactive (NonReactive) 08/19/21 12:46 Hepatitis C Antibody Non-reactive (NonReactive) 08/19/21 12:46 [place]/IV: Voiding Method Toilet Active Medications - Current Medications Current Medications: Generic Name Dose Route Start Last Admin Trade Name Freq PRN Reason Stop Dose Admin Amitriptyline HCl 25 mg 08/19/21 22:00 08/21/21 21:40 Amitriptyline 25 Mg Tab PO 25 mg QHS [facility] Administration Atenolol 50 mg 08/19/21 11:00 08/22/21 11:12 Atenolol 50 Mg Tab PO Not Given DAILY [facility] Atorvastatin Calcium 10 mg 08/19/21 22:00 08/21/21 21:40 Atorvastatin 10 Mg Tab PO 10 mg QHS [facility] Administration Clopidogrel Bisulfate 75 mg 08/19/21 11:00 08/22/21 11:11 Clopidogrel 75 Mg Tab PO 75 mg QDAY [facility] Administration Donepezil HCl 10 mg 08/19/21 22:00 08/21/21 21:40 Donepezil 10 Mg Tab PO 10 mg QHS [facility] Administration Levothyroxine Sodium 100 mcg 08/20/21 06:00 08/22/21 05:48 Levothyroxine 100 Mcg Tab PO 100 mcg 0600 [facility] Administration Miscellaneous Medication 50 mg 08/19/21 10:45 Zinc Gluconate [Zinc] PO DAILY [facility] Multivitamins 1 each 08/19/21 12:00 08/22/21 11:11 Multivitamins ,Therapeutic Tab PO 1 each DAILY [facility] Administration Pantoprazole Sodium 20 mg 08/20/21 10:00 08/22/21 11:11 Pantoprazole 20 Mg Tab PO 20 mg QDAY [facility] Administration Prazosin HCl 5 mg 08/19/21 12:00 08/22/21 11:11 Prazosin 5 Mg Cap PO 5 mg Q12HR [facility] Administration Quetiapine Fumarate 25 mg 08/22/21 12:00 Quetiapine 25 Mg Tab PO 0600,1200 [facility] Quetiapine Fumarate 50 mg 08/22/21 22:00 Quetiapine 25 Mg Tab PO QHS [facility] Tamsulosin HCl 0.4 mg 08/19/21 11:00 08/22/21 11:11 Tamsulosin 0.4 Mg Cap PO 0.4 mg QDAY [facility] Administration Valproic Acid 125 mg 08/21/21 11:00 08/22/21 11:15 Valproic Acid 250 Mg/5 Ml Oral Liqd PO 125 mg BID [facility] Administration
--- NOTE | 2021-08-22 12:22 | Progress Note ---
Assessment and Plan - Patient Problems (1) Vascular dementia with behavioral disturbance Current Visit: Yes Status: Acute Plan to address problem: Verbal prompting, verbal redirection, benzodiazepine therapy as clinically indicated. (2) Cerebral atherosclerosis Current Visit: Yes Status: Acute Plan to address problem: Risk factor reduction therapy, antiplatelet therapy. (3) Hypertension Current Visit: Yes Status: Acute Qualifiers: Hypertension type: primary hypertension Qualified Code(s): I10 - Essential (primary) hypertension Plan to address problem: Monitor blood pressure every shift, continue prehospital antihypertensive therapy. (4) Hyperlipidemia Current Visit: Yes Status: Acute Qualifiers: Hyperlipidemia type: mixed hyperlipidemia Qualified Code(s): E78.2 - Mixed hyperlipidemia Plan to address problem: Low-cholesterol diet, statin therapy (5) Hypothyroidism Current Visit: Yes Status: Acute Plan to address problem: Continue Synthroid therapy, supportive care. (6) BPH (benign prostatic hyperplasia) Current Visit: Yes Status: Acute Qualifiers: Lower urinary tract symptom detail: urinary retention Plan to address problem: Continue Flomax, continue current therapy. Patient may be allowed to self catheterize himself intermittently. Patient undergoes self-catheterization at home. Outpatient urology follow-up (7) Advance care planning Current Visit: Yes Status: Acute Plan to address problem: Disease education conducted, care plan discussed, diagnoses discussed, prognosis discussed, patient is full code. Patient knowledges understanding and agreement with care plan, +30 minutes. History Interval history: 71 YO Male with HTN, HLD, Vascular Dementia with Behavioral Disturbance, MDD, BPH complicated by Urinary retention, OA, Hypothyroidism, GERD admitted to [facility] unit for psychiatric stabilization. Patient seen and evaluated in the recreation room. Patient cooperative with exam and interview. No reported nursing events. Patient denies pain. Hospitalist Physical - Constitutional Vitals: Temp Pulse Resp BP Pulse Ox 98.3 F 67 18 141/75 97 08/22/21 10:57 08/22/21 10:57 08/22/21 10:57 08/22/21 10:57 08/22/21 10:57 General appearance: Present: no acute distress - EENT Eyes: Present: PERRL ENT: hearing decreased - Neck Neck: Present: supple - Respiratory Respiratory effort: normal Respiratory: bilateral: CTA - Cardiovascular Rhythm: regular Heart Sounds: Present: S1 & S2 - Extremities Extremities: no ischemia Peripheral Pulses: within normal limits - Abdominal General gastrointestinal: soft, non-tender, non-distended - Integumentary Integumentary: Present: clear, dry - Psychiatric Psychiatric: cooperative - Neurologic Neurologic: CNII-XII intact Results - Labs CBC & Chem 7: 08/19/21 12:46 08/19/21 12:46 Labs: Laboratory Last Values WBC 3.9 K/mm3 (4.5-11.0) L 08/19/21 12:46 RBC 3.88 M/mm3 (3.65-5.03) 08/19/21 12:46 Hgb 13.2 gm/dl (11.8-15.2) 08/19/21 12:46 Hct 40.3 % (35.5-45.6) 08/19/21 12:46 MCV 104 fl (84-94) H 08/19/21 12:46 MCH 34 pg (28-32) H 08/19/21 12:46 MCHC 33 % (32-34) 08/19/21 12:46 RDW 16.5 % (13.2-15.2) H 08/19/21 12:46 Plt Count 199 K/mm3 (140-440) 08/19/21 12:46 Lymph % (Auto) 17.7 % (13.4-35.0) 08/19/21 12:46 [place] % (Auto) 8.8 % (0.0-7.3) H 08/19/21 12:46 Eos % (Auto) 1.5 % (0.0-4.3) 08/19/21 12:46 Baso % (Auto) 0.9 % (0.0-1.8) 08/19/21 12:46 Lymph # (Auto) 0.7 K/mm3 (1.2-5.4) L 08/19/21 12:46 [place] # (Auto) 0.3 K/mm3 (0.0-0.8) 08/19/21 12:46 Eos # (Auto) 0.1 K/mm3 (0.0-0.4) 08/19/21 12:46 Baso # (Auto) 0.0 K/mm3 (0.0-0.1) 08/19/21 12:46 Seg Neutrophils % 71.1 % (40.0-70.0) H 08/19/21 12:46 Seg Neutrophils # 2.8 K/mm3 (1.8-7.7) 08/19/21 12:46 Sodium 142 mmol/L (137-145) 08/19/21 12:46 Potassium 3.7 mmol/L (3.6-5.0) 08/19/21 12:46 Chloride 106.7 mmol/L (98-107) 08/19/21 12:46 Carbon Dioxide 25 mmol/L (22-30) 08/19/21 12:46 Anion Gap 14 mmol/L 08/19/21 12:46 BUN 12 mg/dL (9-20) 08/19/21 12:46 Creatinine 0.9 mg/dL (0.8-1.3) 08/19/21 12:46 Estimated GFR > 60 ml/min 08/19/21 12:46 BUN/Creatinine Ratio 13 % 08/19/21 12:46 Glucose 117 mg/dL (75-100) H 08/19/21 12:46 Hemoglobin A1c 5.4 % (4-6) 08/19/21 12:46 Calcium 8.5 mg/dL (8.4-10.2) 08/19/21 12:46 Total Bilirubin 0.60 mg/dL (0.1-1.2) 08/19/21 12:46 AST 22 units/L (5-40) 08/19/21 12:46 ALT 28 units/L (7-56) 08/19/21 12:46 Alkaline Phosphatase 100 units/L (35-129) 08/19/21 12:46 Total Protein 6.3 g/dL (6.3-8.2) 08/19/21 12:46 Albumin 3.8 g/dL (3.9-5) L 08/19/21 12:46 Albumin/Globulin Ratio 1.5 % 08/19/21 12:46 Triglycerides 115 mg/dL (2-149) 08/19/21 12:46 Cholesterol 190 mg/dL (50-199) 08/19/21 12:46 LDL Cholesterol Direct 118 mg/dL (50-130) 08/19/21 12:46 HDL Cholesterol 61 mg/dL (40-59) H 08/19/21 12:46 Cholesterol/HDL Ratio 3.11 % 08/19/21 12:46 TSH 5.510 mlU/mL (0.270-4.200) H 08/19/21 12:46 Hepatitis A IgM Ab Non-reactive (NonReactive) 08/19/21 12:46 Hep Bs Antigen Non-reactive (Negative) 08/19/21 12:46 Hep B Core IgM Ab Non-reactive (NonReactive) 08/19/21 12:46 Hepatitis C Antibody Non-reactive (NonReactive) 08/19/21 12:46 Najera/IV: Voiding Method Toilet Active Medications - Current Medications Current Medications: Generic Name Dose Route Start Last Admin Trade Name Freq PRN Reason Stop Dose Admin Amitriptyline HCl 25 mg 08/19/21 22:00 08/21/21 21:40 Amitriptyline 25 Mg Tab PO 25 mg QHS [facility] Administration Atenolol 50 mg 08/19/21 11:00 08/22/21 11:12 Atenolol 50 Mg Tab PO Not Given DAILY [facility] Atorvastatin Calcium 10 mg 08/19/21 22:00 08/21/21 21:40 Atorvastatin 10 Mg Tab PO 10 mg QHS [facility] Administration Clopidogrel Bisulfate 75 mg 08/19/21 11:00 08/22/21 11:11 Clopidogrel 75 Mg Tab PO 75 mg QDAY [facility] Administration Donepezil HCl 10 mg 08/19/21 22:00 08/21/21 21:40 Donepezil 10 Mg Tab PO 10 mg QHS [facility] Administration Levothyroxine Sodium 100 mcg 08/20/21 06:00 08/22/21 05:48 Levothyroxine 100 Mcg Tab PO 100 mcg 0600 [facility] Administration Miscellaneous Medication 50 mg 08/19/21 10:45 Zinc Gluconate [Zinc] PO DAILY [facility] Multivitamins 1 each 08/19/21 12:00 08/22/21 11:11 Multivitamins ,Therapeutic Tab PO 1 each DAILY [facility] Administration Pantoprazole Sodium 20 mg 08/20/21 10:00 08/22/21 11:11 Pantoprazole 20 Mg Tab PO 20 mg QDAY [facility] Administration Prazosin HCl 5 mg 08/19/21 12:00 08/22/21 11:11 Prazosin 5 Mg Cap PO 5 mg Q12HR [facility] Administration Quetiapine Fumarate 25 mg 08/22/21 12:00 Quetiapine 25 Mg Tab PO 0600,1200 [facility] Quetiapine Fumarate 50 mg 08/22/21 22:00 Quetiapine 25 Mg Tab PO QHS [facility] Tamsulosin HCl 0.4 mg 08/19/21 11:00 08/22/21 11:11 Tamsulosin 0.4 Mg Cap PO 0.4 mg QDAY [facility] Administration Valproic Acid 125 mg 08/21/21 11:00 08/22/21 11:15 Valproic Acid 250 Mg/5 Ml Oral Liqd PO 125 mg BID [facility] Administration
--- NOTE | 2021-08-22 12:24 | Progress Note ---
Assessment and Plan - Patient Problems (1) Vascular dementia with behavioral disturbance Current Visit: Yes Status: Acute Plan to address problem: Verbal prompting, verbal redirection, benzodiazepine therapy as clinically indicated. (2) Cerebral atherosclerosis Current Visit: Yes Status: Acute Plan to address problem: Risk factor reduction therapy, antiplatelet therapy. (3) Hypertension Current Visit: Yes Status: Acute Qualifiers: Hypertension type: primary hypertension Qualified Code(s): I10 - Essential (primary) hypertension Plan to address problem: Monitor blood pressure every shift, continue prehospital antihypertensive therapy. (4) Hyperlipidemia Current Visit: Yes Status: Acute Qualifiers: Hyperlipidemia type: mixed hyperlipidemia Qualified Code(s): E78.2 - Mixed hyperlipidemia Plan to address problem: Low-cholesterol diet, statin therapy (5) Hypothyroidism Current Visit: Yes Status: Acute Plan to address problem: Continue Synthroid therapy, supportive care. (6) BPH (benign prostatic hyperplasia) Current Visit: Yes Status: Acute Qualifiers: Lower urinary tract symptom detail: urinary retention Plan to address problem: Continue Flomax, continue current therapy. Patient would like to undergo self-catheterization today. Patient does not have his Najera catheter from home. Requested family members bring patient supplies. If family is unable to secure supplies will order Najera catheter for self-catheterization.. Outpatient urology follow-up (7) Advance care planning Current Visit: Yes Status: Acute History Interval history: 71 YO Male with HTN, HLD, Vascular Dementia with Behavioral Disturbance, MDD, BPH complicated by Urinary retention, OA, Hypothyroidism, GERD admitted to [facility] unit for psychiatric stabilization. Patient seen and evaluated in the recreation room. Patient cooperative with exam and interview. Patient states that he feels like he is retaining urine. Patient wishes to undergo self- catheterization today. Patient denies pain. Hospitalist Physical - Constitutional Vitals: Temp Pulse Resp BP Pulse Ox 98.3 F 67 18 141/75 97 08/22/21 10:57 08/22/21 10:57 08/22/21 10:57 08/22/21 10:57 08/22/21 10:57 General appearance: Present: no acute distress - EENT Eyes: Present: PERRL ENT: hearing decreased - Neck Neck: Present: supple - Respiratory Respiratory effort: normal Respiratory: bilateral: CTA - Cardiovascular Rhythm: regular Heart Sounds: Present: S1 & S2 - Extremities Extremities: no ischemia Peripheral Pulses: within normal limits - Abdominal General gastrointestinal: soft, non-tender, non-distended - Integumentary Integumentary: Present: clear, dry - Psychiatric Psychiatric: cooperative - Neurologic Neurologic: CNII-XII intact Results - Labs CBC & Chem 7: 08/19/21 12:46 08/19/21 12:46 Labs: Laboratory Last Values WBC 3.9 K/mm3 (4.5-11.0) L 08/19/21 12:46 RBC 3.88 M/mm3 (3.65-5.03) 08/19/21 12:46 Hgb 13.2 gm/dl (11.8-15.2) 08/19/21 12:46 Hct 40.3 % (35.5-45.6) 08/19/21 12:46 MCV 104 fl (84-94) H 08/19/21 12:46 MCH 34 pg (28-32) H 08/19/21 12:46 MCHC 33 % (32-34) 08/19/21 12:46 RDW 16.5 % (13.2-15.2) H 08/19/21 12:46 Plt Count 199 K/mm3 (140-440) 08/19/21 12:46 Lymph % (Auto) 17.7 % (13.4-35.0) 08/19/21 12:46 [place] % (Auto) 8.8 % (0.0-7.3) H 08/19/21 12:46 Eos % (Auto) 1.5 % (0.0-4.3) 08/19/21 12:46 Baso % (Auto) 0.9 % (0.0-1.8) 08/19/21 12:46 Lymph # (Auto) 0.7 K/mm3 (1.2-5.4) L 08/19/21 12:46 [place] # (Auto) 0.3 K/mm3 (0.0-0.8) 08/19/21 12:46 Eos # (Auto) 0.1 K/mm3 (0.0-0.4) 08/19/21 12:46 Baso # (Auto) 0.0 K/mm3 (0.0-0.1) 08/19/21 12:46 Seg Neutrophils % 71.1 % (40.0-70.0) H 08/19/21 12:46 Seg Neutrophils # 2.8 K/mm3 (1.8-7.7) 08/19/21 12:46 Sodium 142 mmol/L (137-145) 08/19/21 12:46 Potassium 3.7 mmol/L (3.6-5.0) 08/19/21 12:46 Chloride 106.7 mmol/L (98-107) 08/19/21 12:46 Carbon Dioxide 25 mmol/L (22-30) 08/19/21 12:46 Anion Gap 14 mmol/L 08/19/21 12:46 BUN 12 mg/dL (9-20) 08/19/21 12:46 Creatinine 0.9 mg/dL (0.8-1.3) 08/19/21 12:46 Estimated GFR > 60 ml/min 08/19/21 12:46 BUN/Creatinine Ratio 13 % 08/19/21 12:46 Glucose 117 mg/dL (75-100) H 08/19/21 12:46 Hemoglobin A1c 5.4 % (4-6) 08/19/21 12:46 Calcium 8.5 mg/dL (8.4-10.2) 08/19/21 12:46 Total Bilirubin 0.60 mg/dL (0.1-1.2) 08/19/21 12:46 AST 22 units/L (5-40) 08/19/21 12:46 ALT 28 units/L (7-56) 08/19/21 12:46 Alkaline Phosphatase 100 units/L (35-129) 08/19/21 12:46 Total Protein 6.3 g/dL (6.3-8.2) 08/19/21 12:46 Albumin 3.8 g/dL (3.9-5) L 08/19/21 12:46 Albumin/Globulin Ratio 1.5 % 08/19/21 12:46 Triglycerides 115 mg/dL (2-149) 08/19/21 12:46 Cholesterol 190 mg/dL (50-199) 08/19/21 12:46 LDL Cholesterol Direct 118 mg/dL (50-130) 08/19/21 12:46 HDL Cholesterol 61 mg/dL (40-59) H 08/19/21 12:46 Cholesterol/HDL Ratio 3.11 % 08/19/21 12:46 TSH 5.510 mlU/mL (0.270-4.200) H 08/19/21 12:46 Hepatitis A IgM Ab Non-reactive (NonReactive) 08/19/21 12:46 Hep Bs Antigen Non-reactive (Negative) 08/19/21 12:46 Hep B Core IgM Ab Non-reactive (NonReactive) 08/19/21 12:46 Hepatitis C Antibody Non-reactive (NonReactive) 08/19/21 12:46 Najera/IV: Voiding Method Toilet Active Medications - Current Medications Current Medications: Generic Name Dose Route Start Last Admin Trade Name Freq PRN Reason Stop Dose Admin Amitriptyline HCl 25 mg 08/19/21 22:00 08/21/21 21:40 Amitriptyline 25 Mg Tab PO 25 mg QHS [facility] Administration Atenolol 50 mg 08/19/21 11:00 08/22/21 11:12 Atenolol 50 Mg Tab PO Not Given DAILY [facility] Atorvastatin Calcium 10 mg 08/19/21 22:00 08/21/21 21:40 Atorvastatin 10 Mg Tab PO 10 mg QHS [facility] Administration Clopidogrel Bisulfate 75 mg 08/19/21 11:00 08/22/21 11:11 Clopidogrel 75 Mg Tab PO 75 mg QDAY [facility] Administration Donepezil HCl 10 mg 08/19/21 22:00 08/21/21 21:40 Donepezil 10 Mg Tab PO 10 mg QHS [facility] Administration Levothyroxine Sodium 100 mcg 08/20/21 06:00 08/22/21 05:48 Levothyroxine 100 Mcg Tab PO 100 mcg 0600 [facility] Administration Miscellaneous Medication 50 mg 08/19/21 10:45 Zinc Gluconate [Zinc] PO DAILY [facility] Multivitamins 1 each 08/19/21 12:00 08/22/21 11:11 Multivitamins ,Therapeutic Tab PO 1 each DAILY [facility] Administration Pantoprazole Sodium 20 mg 08/20/21 10:00 08/22/21 11:11 Pantoprazole 20 Mg Tab PO 20 mg QDAY [facility] Administration Prazosin HCl 5 mg 08/19/21 12:00 08/22/21 11:11 Prazosin 5 Mg Cap PO 5 mg Q12HR [facility] Administration Quetiapine Fumarate 25 mg 08/22/21 12:00 Quetiapine 25 Mg Tab PO 0600,1200 [facility] Quetiapine Fumarate 50 mg 08/22/21 22:00 Quetiapine 25 Mg Tab PO QHS [facility] Tamsulosin HCl 0.4 mg 08/19/21 11:00 08/22/21 11:11 Tamsulosin 0.4 Mg Cap PO 0.4 mg QDAY [facility] Administration Valproic Acid 125 mg 08/21/21 11:00 08/22/21 11:15 Valproic Acid 250 Mg/5 Ml Oral Liqd PO 125 mg BID [facility] Administration
[2021-08-22] MEDS: QUEtiapine 25 MG TAB PO SCH ×2 (13:59→21:45)
[2021-08-22] MEDS: DONEPEZIL 10 MG TAB PO SCH (21:22)
[2021-08-22] MEDS: AMITRIPTYLINE 25 MG TAB PO SCH (21:22)
[2021-08-23] MEDS: QUEtiapine 25 MG TAB PO SCH ×3 (06:50→21:59)
[2021-08-23] MEDS: LEVOTHYROXINE 100 MCG TAB PO SCH (06:50)
[2021-08-23] MEDS: PRAZOSIN 5 MG CAP PO SCH ×2 (09:33→21:57)
[2021-08-23] MEDS: PANTOPRAZOLE 20 MG TAB PO SCH (09:34)
[2021-08-23] MEDS: MULTIVITAMINS ,THERAPEUTIC TAB PO SCH (09:34)
[2021-08-23] MEDS: TAMSULOSIN 0.4 MG CAP PO SCH (09:34)
[2021-08-23] MEDS: VALPROIC ACID 250 MG/5 ML ORAL LIQD PO SCH ×2 (09:34→21:58)
[2021-08-23] MEDS: CLOPIDOGREL 75 MG TAB PO SCH (09:34)
[2021-08-23] MEDS: atenoloL 50 MG TAB PO SCH (09:34)
--- NOTE | 2021-08-23 10:00 | Progress Note ---
Subjective Date of service: 08/23/21 Principal diagnosis: Dementia with Behavioral Disturbance Subjective Comment: 08/22/21: The patient was seen this morning in the activity room. He reports being tired. He reports sleep as poor " I was up most of the night, because of the time change." He reports mood as good. He denies any current suicidal/homicidal ideation and denies hallucinations. 08/23/21: The patient was seen this morning in the activity room. He presents with some confusion. He reports sleep, appetite and mood as good. He denies any current suicidal/homicidal ideation and denies hallucinations. REVIEW OF SYSTEMS Constitutional: Negative for weight loss ENT: Negative for stridor Respiratory: Negative for cough or hemoptysis All other systems reviewed and are negative MENTAL STATUS EXAMINATION General Appearance and Behavior: Age appropriate, good hygiene, wearing appropriate clothes. cooperative Cooperation: Cooperative Psychomotor Behavior: Psychomotor normal Mood: "good" Affect and affective range: congruent with stated mood Thought Process: impaired Thought Content: confused Speech: Normal tone and pace Suicidal Ideation: Denies Homicidal Ideation: Denies Hallucinations: Denies Delusions: None elicited Impulse Control: Limited Insight and Judgment: Poor insight and fair judgment Memory: poor Attention: distracted Orientation: confused Assessment (1) Dementia with Behavioral Disturbance Current Visit: Yes Status: Acute Treatment Plan Patient admitted for inpatient psychiatric evaluation, medication adjustment and close monitoring The patient's behavior, mood, sleep and appetite will be closely monitored. Patient enrolled in individual and group therapeutic sessions and encouraged to attend. Patient provided with a safe and structured environment. Patient's physical health needs will be addressed by the Hospitalist. Hospitalist Consulted Labs including CBC, CMP, Lipid profile and Hemoglobin A1C levels ordered for baseline reference Social Assessment will be completed and the Metal Patternmaker will work with patient and family to ensure a suitable and safe disposition Medication adjustment will be made as clinically indicated Continue Depakote liquid 125mg po BID Continue Seroquel 25mg BID, 50mg po QHS [facility] Rastafari/Preservation: - Start Trazodone 50 mg po QHS & 50 mg po QHS PRN between 10 PM & 2 AM for insomnia - Start Melatonin 5 mg po QHS to promote circadian rhythm The patient agreed on the treatment plan, understood the risk, benefit, alternative treatment, potential consequence of no treatment, and gave informed consent. Estimated days: 3 Post hospital care: primary care provider, psychiatric provider Case staffed with Dr. Ibarra Medications and Allergies Medications and Allergies Allergies Allergy/AdvReac Type Severity Reaction Status Date / Time No Known Allergies Allergy Verified 08/19/21 06:39 Home Medications Medication Instructions Recorded Confirmed Last Taken Type Amitriptyline [Elavil] 25 mg PO QHS 08/19/21 08/19/21 Unknown History AtorvaSTATin [Lipitor] 10 mg PO QHS 08/19/21 08/19/21 Unknown History Clopidogrel [Plavix] 75 mg PO QDAY 08/19/21 08/19/21 Unknown History Levothyroxine [Synthroid] 100 mcg PO QAM 08/19/21 08/19/21 Unknown History Multivitamin [Multiple Vitamins] 1 each PO DAILY 08/19/21 08/19/21 Unknown History Omeprazole 20 mg PO QAM 08/19/21 08/19/21 Unknown History Tamsulosin [Flomax] 0.4 mg PO QDAY 08/19/21 08/19/21 Unknown History Terazosin HCl 10 mg PO QHS 08/19/21 08/19/21 Unknown History Zinc Gluconate [Zinc] 50 mg PO DAILY 08/19/21 08/19/21 Unknown History atenoloL [Tenormin] 50 mg PO DAILY 08/19/21 08/19/21 Unknown History donepeziL [Aricept] 10 mg PO QHS 08/19/21 08/19/21 Unknown History Active Meds: Active Medications Amitriptyline HCl (Amitriptyline 25 Mg Tab) 25 mg PO QHS [facility] Last Admin: 08/22/21 21:22 Dose: 25 mg Atenolol (Atenolol 50 Mg Tab) 50 mg PO DAILY [facility] Last Admin: 08/23/21 09:34 Dose: 50 mg Atorvastatin Calcium (Atorvastatin 10 Mg Tab) 10 mg PO QHS [facility] Last Admin: 08/22/21 21:22 Dose: 10 mg Clopidogrel Bisulfate (Clopidogrel 75 Mg Tab) 75 mg PO QDAY [facility] Last Admin: 08/23/21 09:34 Dose: 75 mg Donepezil HCl (Donepezil 10 Mg Tab) 10 mg PO QHS [facility] Last Admin: 08/22/21 21:22 Dose: 10 mg Levothyroxine Sodium (Levothyroxine 100 Mcg Tab) 100 mcg PO 0600 [facility] Last Admin: 08/23/21 06:50 Dose: 100 mcg Miscellaneous Medication (Zinc Gluconate [Zinc]) 50 mg PO DAILY [facility] Multivitamins (Multivitamins ,Therapeutic Tab) 1 each PO DAILY [facility] Last Admin: 08/23/21 09:34 Dose: 1 each Pantoprazole Sodium (Pantoprazole 20 Mg Tab) 20 mg PO QDAY [facility] Last Admin: 08/23/21 09:34 Dose: 20 mg Prazosin HCl (Prazosin 5 Mg Cap) 5 mg PO Q12HR [facility] Last Admin: 08/23/21 09:33 Dose: 5 mg Quetiapine Fumarate (Quetiapine 25 Mg Tab) 25 mg PO 0600,1200 [facility] Last Admin: 08/23/21 06:50 Dose: 25 mg Quetiapine Fumarate (Quetiapine 25 Mg Tab) 50 mg PO QHS [facility] Last Admin: 08/22/21 21:45 Dose: 50 mg Tamsulosin HCl (Tamsulosin 0.4 Mg Cap) 0.4 mg PO QDAY [facility] Last Admin: 08/23/21 09:34 Dose: 0.4 mg Valproic Acid (Valproic Acid 250 Mg/5 Ml Oral Liqd) 125 mg PO BID [facility] Last Admin: 08/23/21 09:34 Dose: 125 mg Results - Results Labs/Vitals: Laboratory Last Values WBC 3.9 K/mm3 (4.5-11.0) L 08/19/21 12:46 RBC 3.88 M/mm3 (3.65-5.03) 08/19/21 12:46 Hgb 13.2 gm/dl (11.8-15.2) 08/19/21 12:46 Hct 40.3 % (35.5-45.6) 08/19/21 12:46 MCV 104 fl (84-94) H 08/19/21 12:46 MCH 34 pg (28-32) H 08/19/21 12:46 MCHC 33 % (32-34) 08/19/21 12:46 RDW 16.5 % (13.2-15.2) H 08/19/21 12:46 Plt Count 199 K/mm3 (140-440) 08/19/21 12:46 Lymph % (Auto) 17.7 % (13.4-35.0) 08/19/21 12:46 [place] % (Auto) 8.8 % (0.0-7.3) H 08/19/21 12:46 Eos % (Auto) 1.5 % (0.0-4.3) 08/19/21 12:46 Baso % (Auto) 0.9 % (0.0-1.8) 08/19/21 12:46 Lymph # (Auto) 0.7 K/mm3 (1.2-5.4) L 08/19/21 12:46 [place] # (Auto) 0.3 K/mm3 (0.0-0.8) 08/19/21 12:46 Eos # (Auto) 0.1 K/mm3 (0.0-0.4) 08/19/21 12:46 Baso # (Auto) 0.0 K/mm3 (0.0-0.1) 08/19/21 12:46 Seg Neutrophils % 71.1 % (40.0-70.0) H 08/19/21 12:46 Seg Neutrophils # 2.8 K/mm3 (1.8-7.7) 08/19/21 12:46 Sodium 142 mmol/L (137-145) 08/19/21 12:46 Potassium 3.7 mmol/L (3.6-5.0) 08/19/21 12:46 Chloride 106.7 mmol/L (98-107) 08/19/21 12:46 Carbon Dioxide 25 mmol/L (22-30) 08/19/21 12:46 Anion Gap 14 mmol/L 08/19/21 12:46 BUN 12 mg/dL (9-20) 08/19/21 12:46 Creatinine 0.9 mg/dL (0.8-1.3) 08/19/21 12:46 Estimated GFR > 60 ml/min 08/19/21 12:46 BUN/Creatinine Ratio 13 % 08/19/21 12:46 Glucose 117 mg/dL (75-100) H 08/19/21 12:46 Hemoglobin A1c 5.4 % (4-6) 08/19/21 12:46 Calcium 8.5 mg/dL (8.4-10.2) 08/19/21 12:46 Total Bilirubin 0.60 mg/dL (0.1-1.2) 08/19/21 12:46 AST 22 units/L (5-40) 08/19/21 12:46 ALT 28 units/L (7-56) 08/19/21 12:46 Alkaline Phosphatase 100 units/L (35-129) 08/19/21 12:46 Total Protein 6.3 g/dL (6.3-8.2) 08/19/21 12:46 Albumin 3.8 g/dL (3.9-5) L 08/19/21 12:46 Albumin/Globulin Ratio 1.5 % 08/19/21 12:46 Triglycerides 115 mg/dL (2-149) 08/19/21 12:46 Cholesterol 190 mg/dL (50-199) 08/19/21 12:46 LDL Cholesterol Direct 118 mg/dL (50-130) 08/19/21 12:46 HDL Cholesterol 61 mg/dL (40-59) H 08/19/21 12:46 Cholesterol/HDL Ratio 3.11 % 08/19/21 12:46 TSH 5.510 mlU/mL (0.270-4.200) H 08/19/21 12:46 Hepatitis A IgM Ab Non-reactive (NonReactive) 08/19/21 12:46 Hep Bs Antigen Non-reactive (Negative) 08/19/21 12:46 Hep B Core IgM Ab Non-reactive (NonReactive) 08/19/21 12:46 Hepatitis C Antibody Non-reactive (NonReactive) 08/19/21 12:46 Last Vital Signs Temp 98.4 F 08/23/21 09:30 Pulse 87 08/23/21 09:34 Resp 18 08/23/21 09:30 BP 128/65 08/23/21 09:34 Pulse Ox 97 08/23/21 09:30
[2021-08-23] MEDS: AMITRIPTYLINE 25 MG TAB PO SCH (21:57)
[2021-08-23] MEDS: DONEPEZIL 10 MG TAB PO SCH (21:58)
[2021-08-24] MEDS: QUEtiapine 25 MG TAB PO SCH ×3 (06:05→21:40)
[2021-08-24] MEDS: LEVOTHYROXINE 100 MCG TAB PO SCH (06:05)
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
[2021-08-24] MEDS: VALPROIC ACID 250 MG/5 ML ORAL LIQD PO SCH ×2 (09:34→21:39)
[2021-08-24] MEDS: TAMSULOSIN 0.4 MG CAP PO SCH (09:35)
[2021-08-24] MEDS: MULTIVITAMINS ,THERAPEUTIC TAB PO SCH (09:35)
[2021-08-24] MEDS: atenoloL 50 MG TAB PO SCH (09:35)
[2021-08-24] MEDS: CLOPIDOGREL 75 MG TAB PO SCH (09:35)
[2021-08-24] MEDS: PANTOPRAZOLE 20 MG TAB PO SCH (09:36)
[2021-08-24] MEDS: PRAZOSIN 5 MG CAP PO SCH ×2 (09:37→21:39)
--- NOTE | 2021-08-24 19:58 | Progress Note ---
Assessment and Plan - Patient Problems (1) Vascular dementia with behavioral disturbance Current Visit: Yes Status: Acute Plan to address problem: Verbal prompting, verbal redirection, benzodiazepine therapy as clinically indicated. (2) Cerebral atherosclerosis Current Visit: Yes Status: Acute Plan to address problem: Risk factor reduction therapy, antiplatelet therapy. (3) Hypertension Current Visit: Yes Status: Acute Qualifiers: Hypertension type: primary hypertension Qualified Code(s): I10 - Essential (primary) hypertension Plan to address problem: Monitor blood pressure every shift, continue prehospital antihypertensive therapy. (4) Hyperlipidemia Current Visit: Yes Status: Acute Qualifiers: Hyperlipidemia type: mixed hyperlipidemia Qualified Code(s): E78.2 - Mixed hyperlipidemia Plan to address problem: Low-cholesterol diet, statin therapy (5) Hypothyroidism Current Visit: Yes Status: Acute Plan to address problem: Continue Synthroid therapy, supportive care. (6) BPH (benign prostatic hyperplasia) Current Visit: Yes Status: Acute Qualifiers: Lower urinary tract symptom detail: urinary retention Plan to address problem: Continue Flomax, continue current therapy. Patient mayconduct self-catheterization prn. Outpatient urology follow-up (7) Advance care planning Current Visit: Yes Status: Acute Plan to address problem: Disease education conducted, care plan discussed, diagnoses discussed, prognosis discussed, patient is full code. Patient knowledges understanding and agreement with care plan, +30 minutes. History Interval history: 71 YO Male with HTN, HLD, Vascular Dementia with Behavioral Disturbance, MDD, BPH complicated by Urinary retention, OA, Hypothyroidism, GERD admitted to [facility] psych unit for psychiatric stabilization. Patient seen and evaluated in the recreation room. Patient cooperative with exam and interview. Patient denies pain. No reported nursing events. Hospitalist Physical - Constitutional Vitals: Temp Pulse Resp BP Pulse Ox 97.5 F L 86 18 126/63 98 08/24/21 10:00 08/24/21 10:00 08/24/21 10:00 08/24/21 10:08/24/21 10:00 General appearance: Present: no acute distress - EENT Eyes: Present: PERRL, EOM intact ENT: hearing intact - Neck Neck: Present: supple - Respiratory Respiratory effort: normal Respiratory: bilateral: CTA - Cardiovascular Rhythm: regular Heart Sounds: Present: S1 & S2 - Extremities Extremities: no ischemia Peripheral Pulses: within normal limits - Abdominal General gastrointestinal: soft, non-tender, non-distended - Integumentary Integumentary: Present: clear, dry - Psychiatric Psychiatric: cooperative - Neurologic Neurologic: CNII-XII intact Results - Labs CBC & Chem 7: 08/19/21 12:46 08/19/21 12:46 Labs: Laboratory Last Values WBC 3.9 K/mm3 (4.5-11.0) L 08/19/21 12:46 RBC 3.88 M/mm3 (3.65-5.03) 08/19/21 12:46 Hgb 13.2 gm/dl (11.8-15.2) 08/19/21 12:46 Hct 40.3 % (35.5-45.6) 08/19/21 12:46 MCV 104 fl (84-94) H 08/19/21 12:46 MCH 34 pg (28-32) H 08/19/21 12:46 MCHC 33 % (32-34) 08/19/21 12:46 RDW 16.5 % (13.2-15.2) H 08/19/21 12:46 Plt Count 199 K/mm3 (140-440) 08/19/21 12:46 Lymph % (Auto) 17.7 % (13.4-35.0) 08/19/21 12:46 [place] % (Auto) 8.8 % (0.0-7.3) H 08/19/21 12:46 Eos % (Auto) 1.5 % (0.0-4.3) 08/19/21 12:46 Baso % (Auto) 0.9 % (0.0-1.8) 08/19/21 12:46 Lymph # (Auto) 0.7 K/mm3 (1.2-5.4) L 08/19/21 12:46 [place] # (Auto) 0.3 K/mm3 (0.0-0.8) 08/19/21 12:46 Eos # (Auto) 0.1 K/mm3 (0.0-0.4) 08/19/21 12:46 Baso # (Auto) 0.0 K/mm3 (0.0-0.1) 08/19/21 12:46 Seg Neutrophils % 71.1 % (40.0-70.0) H 08/19/21 12:46 Seg Neutrophils # 2.8 K/mm3 (1.8-7.7) 08/19/21 12:46 Sodium 142 mmol/L (137-145) 08/19/21 12:46 Potassium 3.7 mmol/L (3.6-5.0) 08/19/21 12:46 Chloride 106.7 mmol/L (98-107) 08/19/21 12:46 Carbon Dioxide 25 mmol/L (22-30) 08/19/21 12:46 Anion Gap 14 mmol/L 08/19/21 12:46 BUN 12 mg/dL (9-20) 08/19/21 12:46 Creatinine 0.9 mg/dL (0.8-1.3) 08/19/21 12:46 Estimated GFR > 60 ml/min 08/19/21 12:46 BUN/Creatinine Ratio 13 % 08/19/21 12:46 Glucose 117 mg/dL (75-100) H 08/19/21 12:46 Hemoglobin A1c 5.4 % (4-6) 08/19/21 12:46 Calcium 8.5 mg/dL (8.4-10.2) 08/19/21 12:46 Total Bilirubin 0.60 mg/dL (0.1-1.2) 08/19/21 12:46 AST 22 units/L (5-40) 08/19/21 12:46 ALT 28 units/L (7-56) 08/19/21 12:46 Alkaline Phosphatase 100 units/L (35-129) 08/19/21 12:46 Total Protein 6.3 g/dL (6.3-8.2) 08/19/21 12:46 Albumin 3.8 g/dL (3.9-5) L 08/19/21 12:46 Albumin/Globulin Ratio 1.5 % 08/19/21 12:46 Triglycerides 115 mg/dL (2-149) 08/19/21 12:46 Cholesterol 190 mg/dL (50-199) 08/19/21 12:46 LDL Cholesterol Direct 118 mg/dL (50-130) 08/19/21 12:46 HDL Cholesterol 61 mg/dL (40-59) H 08/19/21 12:46 Cholesterol/HDL Ratio 3.11 % 08/19/21 12:46 TSH 5.510 mlU/mL (0.270-4.200) H 08/19/21 12:46 Hepatitis A IgM Ab Non-reactive (NonReactive) 08/19/21 12:46 Hep Bs Antigen Non-reactive (Negative) 08/19/21 12:46 Hep B Core IgM Ab Non-reactive (NonReactive) 08/19/21 12:46 Hepatitis C Antibody Non-reactive (NonReactive) 08/19/21 12:46 Njaera/IV: Voiding Method Toilet Active Medications - Current Medications Current Medications: Generic Name Dose Route Start Last Admin Trade Name Freq PRN Reason Stop Dose Admin Amitriptyline HCl 25 mg 08/19/21 22:00 08/23/21 21:57 Amitriptyline 25 Mg Tab PO 25 mg QHS [facility]ABS Administration Atenolol 50 mg 08/19/21 11:00 08/24/21 09:35 Atenolol 50 Mg Tab PO 50 mg DAILY BABS Administration Atorvastatin Calcium 10 mg 08/19/21 22:00 08/23/21 21:58 Atorvastatin 10 Mg Tab PO 10 mg QHS BABS Administration Clopidogrel Bisulfate 75 mg 08/19/21 11:00 08/24/21 09:35 Clopidogrel 75 Mg Tab PO 75 mg QDAY BABS Administration Donepezil HCl 10 mg 08/19/21 22:00 08/23/21 21:58 Donepezil 10 Mg Tab PO 10 mg QHS BABS Administration Levothyroxine Sodium 100 mcg 08/20/21 06:00 08/24/21 06:05 Levothyroxine 100 Mcg Tab PO 100 mcg 0600 BABS Administration Miscellaneous Medication 50 mg 08/19/21 10:45 Zinc Gluconate [Zinc] PO DAILY [facility] Multivitamins 1 each 08/19/21 12:00 08/24/21 09:35 Multivitamins ,Therapeutic Tab PO 1 each DAILY [facility]ABS Administration Pantoprazole Sodium 20 mg 08/20/21 10:00 08/24/21 09:36 Pantoprazole 20 Mg Tab PO 20 mg QDAY [facility]ABS Administration Prazosin HCl 5 mg 08/19/21 12:00 08/24/21 09:37 Prazosin 5 Mg Cap PO 5 mg Q12HR [facility]ABS Administration Quetiapine Fumarate 25 mg 08/22/21 12:00 08/24/21 12:01 Quetiapine 25 Mg Tab PO 25 mg 0600,1200 [facility]ABS Administration Quetiapine Fumarate 50 mg 08/22/21 22:00 08/23/21 21:59 Quetiapine 25 Mg Tab PO 50 mg QHS [facility]ABS Administration Tamsulosin HCl 0.4 mg 08/19/21 11:00 08/24/21 09:35 Tamsulosin 0.4 Mg Cap PO 0.4 mg QDAY [facility]ABS Administration Valproic Acid 125 mg 08/21/21 11:00 08/24/21 09:34 Valproic Acid 250 Mg/5 Ml Oral Liqd PO 125 mg BID [facility]ABS Administration
--- NOTE | 2021-08-24 19:59 | Progress Note ---
Assessment and Plan - Patient Problems (1) Vascular dementia with behavioral disturbance Current Visit: Yes Status: Acute Plan to address problem: Verbal prompting, verbal redirection, benzodiazepine therapy as clinically indicated. (2) Cerebral atherosclerosis Current Visit: Yes Status: Acute Plan to address problem: Risk factor reduction therapy, antiplatelet therapy. (3) Hypertension Current Visit: Yes Status: Acute Qualifiers: Hypertension type: primary hypertension Qualified Code(s): I10 - Essential (primary) hypertension Plan to address problem: Monitor blood pressure every shift, continue prehospital antihypertensive therapy. (4) Hyperlipidemia Current Visit: Yes Status: Acute Qualifiers: Hyperlipidemia type: mixed hyperlipidemia Qualified Code(s): E78.2 - Mixed hyperlipidemia Plan to address problem: Low-cholesterol diet, statin therapy (5) Hypothyroidism Current Visit: Yes Status: Acute Plan to address problem: Continue Synthroid therapy, supportive care. (6) BPH (benign prostatic hyperplasia) Current Visit: Yes Status: Acute Qualifiers: Lower urinary tract symptom detail: urinary retention Plan to address problem: Continue Flomax, continue current therapy. Patient mayconduct self-catheterization prn. Outpatient urology follow-up (7) Advance care planning Current Visit: Yes Status: Acute Plan to address problem: Disease education conducted, care plan discussed, diagnoses discussed, prognosis discussed, patient is full code. Patient knowledges understanding and agreement with care plan, +30 minutes. History Interval history: 71 YO Male with HTN, HLD, Vascular Dementia with Behavioral Disturbance, MDD, BPH complicated by Urinary retention, OA, Hypothyroidism, GERD admitted to [facility] psych unit for psychiatric stabilization. Patient seen and evaluated in the recreation room. Patient cooperative with exam and interview. Patient denies pain. No reported nursing events. Patient is at baseline level of cognition and function. Hospitalist Physical - Constitutional Vitals: Temp Pulse Resp BP Pulse Ox 97.5 F L 86 18 126/63 98 08/24/21 10:00 08/24/21 10:00 08/24/21 10:00 08/24/21 10:08/24/21 10:00 General appearance: Present: no acute distress - EENT Eyes: Present: PERRL ENT: hearing intact - Neck Neck: Present: supple - Respiratory Respiratory effort: normal Respiratory: bilateral: CTA - Cardiovascular Rhythm: regular Heart Sounds: Present: S1 & S2 - Extremities Extremities: no ischemia Peripheral Pulses: within normal limits - Abdominal General gastrointestinal: soft, non-tender, non-distended - Integumentary Integumentary: Present: clear, dry - Psychiatric Psychiatric: cooperative - Neurologic Neurologic: CNII-XII intact Results - Labs CBC & Chem 7: 08/19/21 12:46 08/19/21 12:46 Labs: Laboratory Last Values WBC 3.9 K/mm3 (4.5-11.0) L 08/19/21 12:46 RBC 3.88 M/mm3 (3.65-5.03) 08/19/21 12:46 Hgb 13.2 gm/dl (11.8-15.2) 08/19/21 12:46 Hct 40.3 % (35.5-45.6) 08/19/21 12:46 MCV 104 fl (84-94) H 08/19/21 12:46 MCH 34 pg (28-32) H 08/19/21 12:46 MCHC 33 % (32-34) 08/19/21 12:46 RDW 16.5 % (13.2-15.2) H 08/19/21 12:46 Plt Count 199 K/mm3 (140-440) 08/19/21 12:46 Lymph % (Auto) 17.7 % (13.4-35.0) 08/19/21 12:46 [place] % (Auto) 8.8 % (0.0-7.3) H 08/19/21 12:46 Eos % (Auto) 1.5 % (0.0-4.3) 08/19/21 12:46 Baso % (Auto) 0.9 % (0.0-1.8) 08/19/21 12:46 Lymph # (Auto) 0.7 K/mm3 (1.2-5.4) L 08/19/21 12:46 [place] # (Auto) 0.3 K/mm3 (0.0-0.8) 08/19/21 12:46 Eos # (Auto) 0.1 K/mm3 (0.0-0.4) 08/19/21 12:46 Baso # (Auto) 0.0 K/mm3 (0.0-0.1) 08/19/21 12:46 Seg Neutrophils % 71.1 % (40.0-70.0) H 08/19/21 12:46 Seg Neutrophils # 2.8 K/mm3 (1.8-7.7) 08/19/21 12:46 Sodium 142 mmol/L (137-145) 08/19/21 12:46 Potassium 3.7 mmol/L (3.6-5.0) 08/19/21 12:46 Chloride 106.7 mmol/L (98-107) 08/19/21 12:46 Carbon Dioxide 25 mmol/L (22-30) 08/19/21 12:46 Anion Gap 14 mmol/L 08/19/21 12:46 BUN 12 mg/dL (9-20) 08/19/21 12:46 Creatinine 0.9 mg/dL (0.8-1.3) 08/19/21 12:46 Estimated GFR > 60 ml/min 08/19/21 12:46 BUN/Creatinine Ratio 13 % 08/19/21 12:46 Glucose 117 mg/dL (75-100) H 08/19/21 12:46 Hemoglobin A1c 5.4 % (4-6) 08/19/21 12:46 Calcium 8.5 mg/dL (8.4-10.2) 08/19/21 12:46 Total Bilirubin 0.60 mg/dL (0.1-1.2) 08/19/21 12:46 AST 22 units/L (5-40) 08/19/21 12:46 ALT 28 units/L (7-56) 08/19/21 12:46 Alkaline Phosphatase 100 units/L (35-129) 08/19/21 12:46 Total Protein 6.3 g/dL (6.3-8.2) 08/19/21 12:46 Albumin 3.8 g/dL (3.9-5) L 08/19/21 12:46 Albumin/Globulin Ratio 1.5 % 08/19/21 12:46 Triglycerides 115 mg/dL (2-149) 08/19/21 12:46 Cholesterol 190 mg/dL (50-199) 08/19/21 12:46 LDL Cholesterol Direct 118 mg/dL (50-130) 08/19/21 12:46 HDL Cholesterol 61 mg/dL (40-59) H 08/19/21 12:46 Cholesterol/HDL Ratio 3.11 % 08/19/21 12:46 TSH 5.510 mlU/mL (0.270-4.200) H 08/19/21 12:46 Hepatitis A IgM Ab Non-reactive (NonReactive) 08/19/21 12:46 Hep Bs Antigen Non-reactive (Negative) 08/19/21 12:46 Hep B Core IgM Ab Non-reactive (NonReactive) 08/19/21 12:46 Hepatitis C Antibody Non-reactive (NonReactive) 08/19/21 12:46 [place]/IV: Voiding Method Toilet Active Medications - Current Medications Current Medications: Generic Name Dose Route Start Last Admin Trade Name Freq PRN Reason Stop Dose Admin Amitriptyline HCl 25 mg 08/19/21 22:00 08/23/21 21:57 Amitriptyline 25 Mg Tab PO 25 mg QHS BABS Administration Atenolol 50 mg 08/19/21 11:00 08/24/21 09:35 Atenolol 50 Mg Tab PO 50 mg DAILY BABS Administration Atorvastatin Calcium 10 mg 08/19/21 22:00 08/23/21 21:58 Atorvastatin 10 Mg Tab PO 10 mg QHS BABS Administration Clopidogrel Bisulfate 75 mg 08/19/21 11:00 08/24/21 09:35 Clopidogrel 75 Mg Tab PO 75 mg QDAY BABS Administration Donepezil HCl 10 mg 08/19/21 22:00 08/23/21 21:58 Donepezil 10 Mg Tab PO 10 mg QHS BABS Administration Levothyroxine Sodium 100 mcg 08/20/21 06:00 08/24/21 06:05 Levothyroxine 100 Mcg Tab PO 100 mcg 0600 BABS Administration Miscellaneous Medication 50 mg 08/19/21 10:45 Zinc Gluconate [Zinc] PO DAILY [facility] Multivitamins 1 each 08/19/21 12:00 08/24/21 09:35 Multivitamins ,Therapeutic Tab PO 1 each DAILY BABS Administration Pantoprazole Sodium 20 mg 08/20/21 10:00 08/24/21 09:36 Pantoprazole 20 Mg Tab PO 20 mg QDAY BABS Administration Prazosin HCl 5 mg 08/19/21 12:00 08/24/21 09:37 Prazosin 5 Mg Cap PO 5 mg Q12HR BABS Administration Quetiapine Fumarate 25 mg 08/22/21 12:00 08/24/21 12:01 Quetiapine 25 Mg Tab PO 25 mg 0600,1200 BABS Administration Quetiapine Fumarate 50 mg 08/22/21 22:00 08/23/21 21:59 Quetiapine 25 Mg Tab PO 50 mg QHS BABS Administration Tamsulosin HCl 0.4 mg 08/19/21 11:00 08/24/21 09:35 Tamsulosin 0.4 Mg Cap PO 0.4 mg QDAY BABS Administration Valproic Acid 125 mg 08/21/21 11:00 08/24/21 09:34 Valproic Acid 250 Mg/5 Ml Oral Liqd PO 125 mg BID BABS Administration
[2021-08-24] MEDS: AMITRIPTYLINE 25 MG TAB PO SCH (21:39)
[2021-08-24] MEDS: DONEPEZIL 10 MG TAB PO SCH (21:39)
[2021-08-25] MEDS: LEVOTHYROXINE 100 MCG TAB PO SCH (06:03)
[2021-08-25] MEDS: QUEtiapine 25 MG TAB PO SCH ×3 (06:03→21:49)
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
[2021-08-25] MEDS: TAMSULOSIN 0.4 MG CAP PO SCH (11:23)
[2021-08-25] MEDS: PANTOPRAZOLE 20 MG TAB PO SCH (11:23)
[2021-08-25] MEDS: atenoloL 50 MG TAB PO SCH (11:24)
[2021-08-25] MEDS: MULTIVITAMINS ,THERAPEUTIC TAB PO SCH (11:24)
[2021-08-25] MEDS: VALPROIC ACID 250 MG/5 ML ORAL LIQD PO SCH ×2 (11:24→21:47)
[2021-08-25] MEDS: CLOPIDOGREL 75 MG TAB PO SCH (11:24)
[2021-08-25] MEDS: PRAZOSIN 5 MG CAP PO SCH ×2 (11:25→21:48)
--- NOTE | 2021-08-25 12:10 | XRay Report ---
CHEST 1 VIEW INDICATION: placement. COMPARISON: None FINDINGS: Support devices: None. Heart: Within normal limits. Lungs/Pleura: No acute air space or interstitial disease. No pleural effusion or pneumothorax. Additional findings: None. IMPRESSION: No acute findings. Signer Name: Randal Portillo Jr, MD Signed: 08/25/2021 12:06 PM Workstation Name: [id number]
[2021-08-25] MEDS: AMITRIPTYLINE 25 MG TAB PO SCH (21:50)
[2021-08-25] MEDS: DONEPEZIL 10 MG TAB PO SCH (21:50)
[2021-08-26] MEDS: VALPROIC ACID 250 MG/5 ML ORAL LIQD PO SCH ×2 (09:01→21:52)
[2021-08-26] MEDS: CLOPIDOGREL 75 MG TAB PO SCH (09:02)
[2021-08-26] MEDS: TAMSULOSIN 0.4 MG CAP PO SCH (09:02)
[2021-08-26] MEDS: PRAZOSIN 5 MG CAP PO SCH ×2 (09:02→21:52)
[2021-08-26] MEDS: PANTOPRAZOLE 20 MG TAB PO SCH (09:03)
[2021-08-26] MEDS: atenoloL 50 MG TAB PO SCH (09:04)
[2021-08-26] MEDS: MULTIVITAMINS ,THERAPEUTIC TAB PO SCH (09:04)
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
--- NOTE | 2021-08-26 09:28 | Discharge Summary ---
Providers - Providers Date of Admission: 08/19/21 06:35 Attending physician: CHAITANYA SANTIAGO MD 08/19/21 06:05 Consult to Physician [CONS] Routine Comment: Consulting Provider: SHARON HURLEY Physician Instructions: Reason For Exam: new admission Primary care physician: TURBOGENERATOR OPERATOR Hospitalization Disposition: 30 STILL A PATIENT Allergies/Adverse Reactions: Allergies No Known Allergies Allergy (Verified 08/19/21 06:39) Vital Signs: Last Vital Signs Temp 98.6 F 08/26/21 00:43 Pulse 74 08/26/21 09:04 Resp 18 08/26/21 00:43 BP 130/65 08/26/21 09:04 Pulse Ox 96 08/25/21 08:36 Last Lab: Laboratory Last Values WBC 3.9 K/mm3 (4.5-11.0) L 08/19/21 12:46 RBC 3.88 M/mm3 (3.65-5.03) 08/19/21 12:46 Hgb 13.2 gm/dl (11.8-15.2) 08/19/21 12:46 Hct 40.3 % (35.5-45.6) 08/19/21 12:46 MCV 104 fl (84-94) H 08/19/21 12:46 MCH 34 pg (28-32) H 08/19/21 12:46 MCHC 33 % (32-34) 08/19/21 12:46 RDW 16.5 % (13.2-15.2) H 08/19/21 12:46 Plt Count 199 K/mm3 (140-440) 08/19/21 12:46 Lymph % (Auto) 17.7 % (13.4-35.0) 08/19/21 12:46 [place] % (Auto) 8.8 % (0.0-7.3) H 08/19/21 12:46 Eos % (Auto) 1.5 % (0.0-4.3) 08/19/21 12:46 Baso % (Auto) 0.9 % (0.0-1.8) 08/19/21 12:46 Lymph # (Auto) 0.7 K/mm3 (1.2-5.4) L 08/19/21 12:46 [place] # (Auto) 0.3 K/mm3 (0.0-0.8) 08/19/21 12:46 Eos # (Auto) 0.1 K/mm3 (0.0-0.4) 08/19/21 12:46 Baso # (Auto) 0.0 K/mm3 (0.0-0.1) 08/19/21 12:46 Seg Neutrophils % 71.1 % (40.0-70.0) H 08/19/21 12:46 Seg Neutrophils # 2.8 K/mm3 (1.8-7.7) 08/19/21 12:46 Sodium 142 mmol/L (137-145) 08/19/21 12:46 Potassium 3.7 mmol/L (3.6-5.0) 08/19/21 12:46 Chloride 106.7 mmol/L (98-107) 08/19/21 12:46 Carbon Dioxide 25 mmol/L (22-30) 08/19/21 12:46 Anion Gap 14 mmol/L 08/19/21 12:46 BUN 12 mg/dL (9-20) 08/19/21 12:46 Creatinine 0.9 mg/dL (0.8-1.3) 08/19/21 12:46 Estimated GFR > 60 ml/min 08/19/21 12:46 BUN/Creatinine Ratio 13 % 08/19/21 12:46 Glucose 117 mg/dL (75-100) H 08/19/21 12:46 Hemoglobin A1c 5.4 % (4-6) 08/19/21 12:46 Calcium 8.5 mg/dL (8.4-10.2) 08/19/21 12:46 Total Bilirubin 0.60 mg/dL (0.1-1.2) 08/19/21 12:46 AST 22 units/L (5-40) 08/19/21 12:46 ALT 28 units/L (7-56) 08/19/21 12:46 Alkaline Phosphatase 100 units/L (35-129) 08/19/21 12:46 Total Protein 6.3 g/dL (6.3-8.2) 08/19/21 12:46 Albumin 3.8 g/dL (3.9-5) L 08/19/21 12:46 Albumin/Globulin Ratio 1.5 % 08/19/21 12:46 Triglycerides 115 mg/dL (2-149) 08/19/21 12:46 Cholesterol 190 mg/dL (50-199) 08/19/21 12:46 LDL Cholesterol Direct 118 mg/dL (50-130) 08/19/21 12:46 HDL Cholesterol 61 mg/dL (40-59) H 08/19/21 12:46 Cholesterol/HDL Ratio 3.11 % 08/19/21 12:46 TSH 5.510 mlU/mL (0.270-4.200) H 08/19/21 12:46 SARS-CoV-2 (PCR) Negative (Negative) 08/26/21 08:50 Hepatitis A IgM Ab Non-reactive (NonReactive) 08/19/21 12:46 Hep Bs Antigen Non-reactive (Negative) 08/19/21 12:46 Hep B Core IgM Ab Non-reactive (NonReactive) 08/19/21 12:46 Hepatitis C Antibody Non-reactive (NonReactive) 08/19/21 12:46 Core Measure Documentation - Palliative Care Palliative Care/ Comfort Measures: Not Applicable Exam - Constitutional Vitals: Temp Pulse Resp BP Pulse Ox 98.6 F 74 18 130/65 96 08/26/21 00:43 08/26/21 09:04 08/26/21 00:43 08/26/21 09:04 08/25/21 08:36 Plan Follow up with: PRIMARY CAREMD [Primary Care Provider] - 7 Days
[2021-08-26] MEDS: QUEtiapine 25 MG TAB PO SCH ×2 (12:02→21:52)
[2021-08-26] MEDS: AMITRIPTYLINE 25 MG TAB PO SCH (21:52)
[2021-08-26] MEDS: DONEPEZIL 10 MG TAB PO SCH (21:52)
[2021-08-27] MEDS: LEVOTHYROXINE 100 MCG TAB PO SCH (05:53)
[2021-08-27] MEDS: QUEtiapine 25 MG TAB PO SCH ×2 (05:53→21:33)
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
[2021-08-27] MEDS: VALPROIC ACID 250 MG/5 ML ORAL LIQD PO SCH ×2 (09:39→21:54)
[2021-08-27] MEDS: TAMSULOSIN 0.4 MG CAP PO SCH (09:39)
[2021-08-27] MEDS: CLOPIDOGREL 75 MG TAB PO SCH (09:39)
[2021-08-27] MEDS: MULTIVITAMINS ,THERAPEUTIC TAB PO SCH (09:39)
[2021-08-27] MEDS: PRAZOSIN 5 MG CAP PO SCH ×2 (09:40→21:32)
[2021-08-27] MEDS: PANTOPRAZOLE 20 MG TAB PO SCH (09:40)
[2021-08-27] MEDS: atenoloL 50 MG TAB PO SCH (09:49)
[2021-08-27] MEDS: DONEPEZIL 10 MG TAB PO SCH (21:33)
[2021-08-27] MEDS: AMITRIPTYLINE 25 MG TAB PO SCH (21:33)
[2021-08-28] MEDS: LEVOTHYROXINE 100 MCG TAB PO SCH ×2 (06:54→09:49)
[2021-08-28] MEDS: QUEtiapine 25 MG TAB PO SCH ×5 (06:54→21:19)
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
[2021-08-28] MEDS: atenoloL 50 MG TAB PO SCH (09:48)
[2021-08-28] MEDS: TAMSULOSIN 0.4 MG CAP PO SCH (09:48)
[2021-08-28] MEDS: PRAZOSIN 5 MG CAP PO SCH ×2 (09:49→21:19)
[2021-08-28] MEDS: PANTOPRAZOLE 20 MG TAB PO SCH (09:49)
[2021-08-28] MEDS: MULTIVITAMINS ,THERAPEUTIC TAB PO SCH (09:49)
[2021-08-28] MEDS: CLOPIDOGREL 75 MG TAB PO SCH (09:49)
[2021-08-28] MEDS: VALPROIC ACID 250 MG/5 ML ORAL LIQD PO SCH ×2 (09:51→21:17)
[2021-08-28] MEDS: DONEPEZIL 10 MG TAB PO SCH (21:15)
[2021-08-28] MEDS: AMITRIPTYLINE 25 MG TAB PO SCH (21:19)
[2021-08-29] MEDS: QUEtiapine 25 MG TAB PO SCH ×3 (06:04→21:28)
[2021-08-29] MEDS: LEVOTHYROXINE 100 MCG TAB PO SCH (06:04)
[2021-08-29] MEDS: atenoloL 50 MG TAB PO SCH (09:17)
[2021-08-29] MEDS: PANTOPRAZOLE 20 MG TAB PO SCH (09:17)
[2021-08-29] MEDS: PRAZOSIN 5 MG CAP PO SCH ×2 (09:17→21:27)
[2021-08-29] MEDS: CLOPIDOGREL 75 MG TAB PO SCH (09:17)
[2021-08-29] MEDS: TAMSULOSIN 0.4 MG CAP PO SCH (09:17)
[2021-08-29] MEDS: VALPROIC ACID 250 MG/5 ML ORAL LIQD PO SCH ×2 (09:17→21:27)
[2021-08-29] MEDS: MULTIVITAMINS ,THERAPEUTIC TAB PO SCH (09:17)
--- NOTE | 2021-08-29 09:29 | Discharge Summary ---
Providers - Providers Date of Admission: 08/19/21 06:35 Date of discharge: 08/29/21 Attending physician: CHAITANYA SANTIAGO MD 08/19/21 06:05 Consult to Physician [CONS] Routine Comment: Consulting Provider: SHARON HURLEY Physician Instructions: Reason For Exam: new admission Primary care physician: PULLEY MAINTAINER Hospitalization Reason for admission: agitation Admitting Diagnosis: F02.81 - DEMENTIA IN OTH DISEASES CLASSD ELSWHR W BEHAVIORAL DISTURB Condition: Stable Hospital course: The patient was provided inpatient psychiatric treatment with safe and supportive environment, group/individual therapy, psychiatric medication, medication adjustment, adverse effect monitor, medical evaluation, medical treatment, social service assessment, social support meeting, placement assessment and psycho-education. The patients mood, cognition, behavior, motivation, compliance to treatment and appreciation on family/social support are improved and stabilized. At the time of discharge, the patient had no suicidal ideas, no homicidal ideas, no aggressive thoughts, no endangering beha vior and no debilitating adverse effects. The patient agreed on the treatment plan, understood the risk, benefit, alternative treatment, potential consequence of no treatment, and gave informed consent. Disposition: 01 HOME / SELF CARE / HOMELESS Time spent for discharge: 35 Allergies/Adverse Reactions: Allergies No Known Allergies Allergy (Verified 08/19/21 06:39) Vital Signs: Last Vital Signs Temp 98.5 F 08/29/21 08:51 Pulse 71 08/29/21 09:17 Resp 18 08/29/21 08:51 BP 163/85 08/29/21 09:17 Pulse Ox 96 08/29/21 08:51 Last Lab: Laboratory Last Values WBC 3.9 K/mm3 (4.5-11.0) L 08/19/21 12:46 RBC 3.88 M/mm3 (3.65-5.03) 08/19/21 12:46 Hgb 13.2 gm/dl (11.8-15.2) 08/19/21 12:46 Hct 40.3 % (35.5-45.6) 08/19/21 12:46 MCV 104 fl (84-94) H 08/19/21 12:46 MCH 34 pg (28-32) H 08/19/21 12:46 MCHC 33 % (32-34) 08/19/21 12:46 RDW 16.5 % (13.2-15.2) H 08/19/21 12:46 Plt Count 199 K/mm3 (140-440) 08/19/21 12:46 Lymph % (Auto) 17.7 % (13.4-35.0) 08/19/21 12:46 [place] % (Auto) 8.8 % (0.0-7.3) H 08/19/21 12:46 Eos % (Auto) 1.5 % (0.0-4.3) 08/19/21 12:46 Baso % (Auto) 0.9 % (0.0-1.8) 08/19/21 12:46 Lymph # (Auto) 0.7 K/mm3 (1.2-5.4) L 08/19/21 12:46 [place] # (Auto) 0.3 K/mm3 (0.0-0.8) 08/19/21 12:46 Eos # (Auto) 0.1 K/mm3 (0.0-0.4) 08/19/21 12:46 Baso # (Auto) 0.0 K/mm3 (0.0-0.1) 08/19/21 12:46 Seg Neutrophils % 71.1 % (40.0-70.0) H 08/19/21 12:46 Seg Neutrophils # 2.8 K/mm3 (1.8-7.7) 08/19/21 12:46 Sodium 142 mmol/L (137-145) 08/19/21 12:46 Potassium 3.7 mmol/L (3.6-5.0) 08/19/21 12:46 Chloride 106.7 mmol/L (98-107) 08/19/21 12:46 Carbon Dioxide 25 mmol/L (22-30) 08/19/21 12:46 Anion Gap 14 mmol/L 08/19/21 12:46 BUN 12 mg/dL (9-20) 08/19/21 12:46 Creatinine 0.9 mg/dL (0.8-1.3) 08/19/21 12:46 Estimated GFR > 60 ml/min 08/19/21 12:46 BUN/Creatinine Ratio 13 % 08/19/21 12:46 Glucose 117 mg/dL (75-100) H 08/19/21 12:46 Hemoglobin A1c 5.4 % (4-6) 08/19/21 12:46 Calcium 8.5 mg/dL (8.4-10.2) 08/19/21 12:46 Total Bilirubin 0.60 mg/dL (0.1-1.2) 08/19/21 12:46 AST 22 units/L (5-40) 08/19/21 12:46 ALT 28 units/L (7-56) 08/19/21 12:46 Alkaline Phosphatase 100 units/L (35-129) 08/19/21 12:46 Total Protein 6.3 g/dL (6.3-8.2) 08/19/21 12:46 Albumin 3.8 g/dL (3.9-5) L 08/19/21 12:46 Albumin/Globulin Ratio 1.5 % 08/19/21 12:46 Triglycerides 115 mg/dL (2-149) 08/19/21 12:46 Cholesterol 190 mg/dL (50-199) 08/19/21 12:46 LDL Cholesterol Direct 118 mg/dL (50-130) 08/19/21 12:46 HDL Cholesterol 61 mg/dL (40-59) H 08/19/21 12:46 Cholesterol/HDL Ratio 3.11 % 08/19/21 12:46 TSH 5.510 mlU/mL (0.270-4.200) H 08/19/21 12:46 SARS-CoV-2 (PCR) Negative (Negative) 08/26/21 08:50 Hepatitis A IgM Ab Non-reactive (NonReactive) 08/19/21 12:46 Hep Bs Antigen Non-reactive (Negative) 08/19/21 12:46 Hep B Core IgM Ab Non-reactive (NonReactive) 08/19/21 12:46 Hepatitis C Antibody Non-reactive (NonReactive) 08/19/21 12:46 Core Measure Documentation - Palliative Care Palliative Care/ Comfort Measures: Not Applicable - Core Measures Any of the following diagnoses?: none Exam - Constitutional Vitals: Temp Pulse Resp BP Pulse Ox 98.5 F 71 18 163/85 96 08/29/21 08:51 08/29/21 09:17 08/29/21 08:51 08/29/21 09:17 08/29/21 08:51 General appearance: Present: no acute distress - EENT Eyes: Present: PERRL, EOM intact ENT: hearing intact, clear oral mucosa - Neck Neck: Present: supple, normal ROM - Respiratory Respiratory effort: normal Plan Activity: advance as tolerated Weight Bearing Status: Weight Bear as Tolerated Care Plan Goals: Maintain good and stable mental health Plan of Treatment: The patient should be compliant with medications, not to use drugs and not to drink alcohol.The patient understands that if suicidal ideas, homicidal ideas, or any endangering thoughts/behavior arise, they should immediately seek for emergent assistance including but not limited to crisis hot line and emergency room. Follow up with outpatient Psychiatrist and PCP within 7 - 14 days of discharge. Assessment: Dementia with behavioral disturbance Follow up with: PRIMARY CARE, [Primary Care Provider] - 7 Days Prescriptions: QUEtiapine [SEROquel] 50 mg PO QHS #30 tablet VALPROIC ACID Liq [DepaKENE Liq] 125 mg PO BID #60 oral.liqd QUEtiapine [SEROquel] 25 mg PO 0600,1200 #60 tablet
[2021-08-29] MEDS: AMITRIPTYLINE 25 MG TAB PO SCH (21:27)
[2021-08-29] MEDS: DONEPEZIL 10 MG TAB PO SCH (21:28)
[2021-08-30] MEDS: QUEtiapine 25 MG TAB PO SCH ×2 (06:25→11:30)
[2021-08-30] MEDS: LEVOTHYROXINE 100 MCG TAB PO SCH (06:25)
[2021-08-30] MEDS: TAMSULOSIN 0.4 MG CAP PO SCH (10:44)
[2021-08-30] MEDS: CLOPIDOGREL 75 MG TAB PO SCH (10:44)
[2021-08-30] MEDS: MULTIVITAMINS ,THERAPEUTIC TAB PO SCH (10:44)
[2021-08-30] MEDS: VALPROIC ACID 250 MG/5 ML ORAL LIQD PO SCH (10:50)
[2021-08-30 10:51] VITALS: BP 149/79
[2021-08-30] MEDS: PRAZOSIN 5 MG CAP PO SCH (10:51)
[2021-08-30] MEDS: atenoloL 50 MG TAB PO SCH (10:55)
[2021-08-30] MEDS: PANTOPRAZOLE 20 MG TAB PO SCH (10:57)
== END 2021-08-30 16:10 | disposition home or self-care (01) | DRG 884 ==
LOC: UNDOADMIN 17:41 → 3A 17:41 → 5A 08-19 06:35
PROVIDERS: ADMIT Psychiatry & Neurology Psychiatry; ATTEND Psychiatry & Neurology Psychiatry
DX: F01.51 Vascular dementia, unspecified severity, with behavioral disturbance (principal); K21.9 Gastro-esophageal reflux disease without esophagitis; E78.5 Hyperlipidemia, unspecified; I10 Essential (primary) hypertension; N40.0 Benign prostatic hyperplasia without lower urinary tract symptoms; I67.2 Cerebral atherosclerosis; E78.2 Mixed hyperlipidemia; E03.9 Hypothyroidism, unspecified; Z20.822 Contact with and (suspected) exposure to COVID-19; Z82.49 Family history of ischemic heart disease and other diseases of the circulatory system
CPT/HCPCS: 36415; 71045; 80053; 80061; 80074; 83036; 84443; 85025; G0378; U0003